=== PATIENT | male | born 1995 | race Hispanic/Latino ===

== ENCOUNTER 2019-11-23 09:09 | Emergency (ER) | payer SELFPAY ==
[2019-11-23 10:26] LABS: Urine Blood 1+ (NEG); Urine Glucose NEGATIVE (NEG); Urine Protein NEGATIVE (NEG); Urine Specific Gravity 1.025 (1.005-1.030)
[2019-11-23 10:30] LABS: Urine Bacteria <20 /HPF (NONE SEEN); Urine Culture Reflex Order REFLEXED
--- NOTE | 2019-11-23 11:07 | EDPHYS ---
Physician Documentation [facility] Name: Eldon Decker Age: 24 yrs Sex: Male : 1995 Arrival Date: 11/23/2019 Time: :14 Bed 11 Private MD: EZE Physician Nikolay Diaz HPI: 11/22 10:58 This 24 yrs old Male presents to ER via Ambulatory with complaints of Urinary kary Problem. 10:58 The patient presents with a possible STD exposure, symptoms include dysuria, purulent kary penile discharge. Onset: The symptoms/episode began/occurred 2 day(s) ago. Modifying factors: The symptoms are alleviated by nothing, the symptoms are aggravated by nothing. Associated signs and symptoms: Pertinent positives: dysuria. Severity of symptoms: At their worst the symptoms were mild, moderate, in the emergency department the symptoms are unchanged. The patient has not experienced similar symptoms in the past. Historical: - Allergies: 09:18 No Known Allergies; ss - Home Meds: :18 None [Active]; ss - PMHx: :18 None; ss - PSHx: 09:18 None; ss - Immunization history:: Adult Immunizations up to date. - Social history:: Smoking status: Patient denies any tobacco usage or history of. ROS: 11:00 Constitutional: Negative for fever, chills, and weight loss, Eyes: Negative for injury, kary pain, redness, and discharge, ENT: Negative for injury, pain, and discharge, Neck: Negative for injury, pain, and swelling, Cardiovascular: Negative for chest pain, palpitations, and edema, Respiratory: Negative for shortness of breath, cough, wheezing, and pleuritic chest pain, Abdomen/GI: Negative for abdominal pain, nausea, vomiting, diarrhea, and constipation, Back: Negative for injury and pain, MS/Extremity: Negative for injury and deformity, Skin: Negative for injury, rash, and discoloration, Neuro: Negative for headache, weakness, numbness, tingling, and seizure, Psych: Negative for depression, anxiety, suicide ideation, homicidal ideation, and hallucinations, Allergy/Immunology: Negative for hives, rash, and allergies, Endocrine: Negative for neck swelling, polydipsia, polyuria, polyphagia, and marked weight changes, Hematologic/Lymphatic: Negative for swollen nodes, abnormal bleeding, and unusual bruising. 11:00 : Positive for urinary symptoms, urinary frequency, small amounts, burning with urination, difficulty urinating, penile discharge, penile pain, of the meatus. Exam: 11:00 Constitutional: This is a well developed, well nourished patient who is awake, alert, kary and in no acute distress. Head/Face: Normocephalic, atraumatic. Eyes: Pupils equal round and reactive to light, extra-ocular motions intact. Lids and lashes normal. Conjunctiva and sclera are non-icteric and not injected. Cornea within normal limits. Periorbital areas with no swelling, redness, or edema. ENT: Nares patent. No nasal discharge, no septal abnormalities noted. Tympanic membranes are normal and external auditory canals are clear. Oropharynx with no redness, swelling, or masses, exudates, or evidence of obstruction, uvula midline. Mucous membranes moist. Neck: Trachea midline, no thyromegaly or masses palpated, and no cervical lymphadenopathy. Supple, full range of motion without nuchal rigidity, or vertebral point tenderness. No Meningismus. Chest/axilla: Normal chest wall appearance and motion. Nontender with no deformity. No lesions are appreciated. Cardiovascular: Regular rate and rhythm with a normal S1 and S2. No gallops, murmurs, or rubs. Normal PMI, no JVD. No pulse deficits. Respiratory: Lungs have equal breath sounds bilaterally, clear to auscultation and percussion. No rales, rhonchi or wheezes noted. No increased work of breathing, no retractions or nasal flaring. Abdomen/GI: Soft, non-tender, with normal bowel sounds. No distension or tympany. No guarding or rebound. No evidence of tenderness throughout. Back: No spinal tenderness. No costovertebral tenderness. Full range of motion. Skin: Warm, dry with normal turgor. Normal color with no rashes, no lesions, and no evidence of cellulitis. MS/ Extremity: Pulses equal, no cyanosis. Neurovascular intact. Full, normal range of motion. Neuro: Awake and alert, GCS 15, oriented to person, place, time, and situation. Cranial nerves II-XII grossly intact. Motor strength 5/5 in all extremities. Sensory grossly intact. Cerebellar exam normal. Normal gait. Psych: Awake, alert, with orientation to person, place and time. Behavior, mood, and affect are within normal limits. 11:00 : CVA tenderness, is absent, Male external genitalia: Circumcision noted. Bladder: is normal, Sexual behavior: the patient is sexually active, and reports multiple partners. Vital Signs: 09:16 BP 128 / 86; Pulse 95; Resp 16; Temp 98.6; Pulse Ox 97% on R/A; Weight 81.65 kg; Height ss 5 ft. 3 in. (160.02 cm); Pain 01/18; 09:16 Body Mass Index 31.89 (81.65 kg, 160.02 cm) MDM: 10:16 Patient medically screened. [facility] 11:02 Data reviewed: vital signs, nurses notes, lab test result(s), urinalysis. [facility] 11/22 09:47 Order name: Urine Microscopic Only; Complete Time: 10:56 11/22 09:49 Order name: Urine Dipstick--Ancillary (enter results); Complete Time: 10:56 11/22 09:47 Order name: Urine Dipstick-Ancillary (obtain specimen); Complete Time: 09:47 11/22 10:35 Order name: Urine Culture EDID 11/22 10:58 Order name: Bladder Scanner: note pvr; Complete Time: 11:16 [facility] Administered Medications: 11:16 Drug: Zithromax 1 grams Route: PO; 11:49 Follow up: Response: No adverse reaction 11:31 Drug: Rocephin (cefTRIAXone) 1 grams Route: IM; Site: right gluteus; 11:49 Follow up: Response: No adverse reaction Disposition: 11/23/19 11:06 Discharged to Home. Impression: Dysuria. - Condition is Stable. - Discharge Instructions: Dysuria, Sexually Transmitted Disease, [id number]. - Prescriptions for Doxycycline Hyclate 100 mg Oral Tablet - take 1 tablet by ORAL route every 12 hours; 20 tablet. - Medication Reconciliation Form, Thank You Letter, Antibiotic Education, Prescription Opioid Use form. - Follow up: Private Physician; When: 2 - 3 days; Reason: Recheck today's complaints, Continuance of care, Re-evaluation by your physician. Follow up: Kale Salomon MD; When: 5 - 6 days; Reason: Recheck today's complaints, Re-evaluation by your physician. - Problem is new. - Symptoms have improved. Signatures: Dispatcher [employer] EDMS Nikolay Diaz MD MD cha Smirch, Shelby, RN RN ss Corrections: (The following items were deleted from the chart) 11:50 11:06 11/23/2019 11:06 Discharged to Home. Impression: Dysuria. Condition is Stable. ss Forms are Medication Reconciliation Form, Thank You Letter, Antibiotic Education, Prescription Opioid Use. Follow up: Private Physician; When: 2 - 3 days; Reason: Recheck today's complaints, Continuance of care, Re-evaluation by your physician. Follow up: Kale Salomon; When: 5 - 6 days; Reason: Recheck today's complaints, Re-evaluation by your physician. Problem is new. Symptoms have improved. kary
--- NOTE | 2019-11-23 11:07 | ER ---
Nurse's Notes [facility] Name: Eldon Decker Age: 24 yrs Sex: Male : 1995 Arrival Date: 11/23/2019 Time: :14 Bed 11 Private MD: Diagnosis: Dysuria Presentation: 11/22 09:16 Chief complaint: Patient states: Burning with urination, urgency and frequency that ss began 3 days ago. Coronavirus screen: Proceed with normal triage. Patient denies a cough. Patient denies shortness of breath or difficulty breathing. Patient denies measured and/or subjective temperature greater than 100.4F prior to today's visit. Patient denies travel on a cruise ship or to a country the [facility] currently lists as an affected area. Patient denies contact with known and/or suspected case of COVID-19. Ebola Screen: Patient denies exposure to infectious person. Patient denies travel to an Ebola-affected area in the 21 days before illness onset. Initial Sepsis Screen: Does the patient meet any 2 criteria? No. Patient's initial sepsis screen is negative. Does the patient have a suspected source of infection? No. Patient's initial sepsis screen is negative. Risk Assessment: Do you want to hurt yourself or someone else? Patient reports no desire to harm self or others. Onset of symptoms was November 20, 2019. 09:16 Method Of Arrival: Ambulatory ss 09:16 Acuity: MARY ELLEN 4 ss Historical: - Allergies: 09:18 No Known Allergies; ss - Home Meds: 09:18 None [Active]; ss - PMHx: 09:18 None; ss - PSHx: 09:18 None; ss - Immunization history:: Adult Immunizations up to date. - Social history:: Smoking status: Patient denies any tobacco usage or history of. Screenin:16 Abuse screen: Denies threats or abuse. Denies injuries from another. Nutritional ss screening: No deficits noted. Tuberculosis screening: Never had TB. Fall Risk None identified. Assessment: 09:16 General: Appears in no apparent distress. comfortable, Behavior is calm, cooperative, ss Denies fever, feeling ill, fatigue, chills. Pain: Complains of pain in suprapubic area, urinary meatus Pain currently is 7 out of 10 on a pain scale. Quality of pain is described as burning, pressure, Pain began 2-3 days ago. Is continuous. Neuro: Level of Consciousness is awake, alert, obeys commands, Oriented to person, place, time, situation, Shoe Lining Fitter are equal bilaterally. Cardiovascular: Capillary refill < 3 seconds is brisk in bilateral fingers. Respiratory: Airway is patent Respiratory effort is even, unlabored, Respiratory pattern is regular, symmetrical. GI: Patient currently denies diarrhea, nausea, vomiting. : Reports burning with urination, since x 3 days urgency, urinary frequency. EENT: Oral mucosa is moist. Throat is clear. Derm: Skin is intact, is healthy with good turgor, Skin is dry, Skin is pink, warm \T\ dry. normal. Musculoskeletal: Circulation, motion, and sensation intact. Range of motion: intact in all extremities, Swelling absent. 10:57 Reassessment: Patient appears in no apparent distress at this time. Patient and/or ss family updated on plan of care and expected duration. Pain level reassessed. Patient is alert, oriented x 3, equal unlabored respirations, skin warm/dry/pink. 11:31 Reassessment: awaiting shot time. Vital Signs: 09:16 BP 128 / 86; Pulse 95; Resp 16; Temp 98.6; Pulse Ox 97% on R/A; Weight 81.65 kg; Height ss 5 ft. 3 in. (160.02 cm); Pain 7/10; 09:16 Body Mass Index 31.89 (81.65 kg, 160.02 cm) ED Course: 09:14 Patient arrived in ED. mr 09:16 Patient has correct armband on for positive identification. Bed in low position. Call ss light in reach. 09:18 Triage completed. ss 09:18 Arm band placed on left wrist. ss 10:16 Nikolay Diaz MD is Attending Physician. kary 10:23 Onieda Robledo, JIM is Primary Nurse. ss 11:03 Kale Salomon MD is Referral Physician. kary 11:31 No provider procedures requiring assistance completed. Patient did not have IV access ss during this emergency room visit. Administered Medications: 11:16 Drug: Zithromax 1 grams Route: PO; ss 11:49 Follow up: Response: No adverse reaction 11:31 Drug: Rocephin (cefTRIAXone) 1 grams Route: IM; Site: right gluteus; ss 11:49 Follow up: Response: No adverse reaction ss Outcome: 11:06 Discharge ordered by . kary 11:31 Discharge instructions given to patient, Instructed on discharge instructions, follow ss up and referral plans. medication usage, Demonstrated understanding of instructions, follow-up care, medications, Prescriptions given X 1. 11:48 Discharged to home ambulatory. 11:48 Condition: good 11:50 Patient left the ED. ss Signatures: Nikolay Diaz MD MD cha Rivera, Mary mr Smirch, Shelby, RN RN ss
[2019-11-23] MEDS ORDERED: AZITHROMYCIN 250 MG TAB ONE (11:11)
[2019-11-23] MEDS ORDERED: LIDOCAINE 1% MPF 2 ML AMPULE ONE (11:11)
[2019-11-23] MEDS ORDERED: CEFTRIAXONE 1000 MG/VIAL ONE (11:11)
[2019-11-23 12:35] VITALS: BP 128/86; TEMP 98.6; O2SAT 97
== END 2019-11-23 11:50 | disposition home or self-care (01) ==
LOC: ER 09:09
DX: R30.0 Dysuria (principal)
CPT/HCPCS: 81003; 81015; 87086; 87088; 96372; 99283; J2001

== ENCOUNTER 2019-12-02 09:30 | Emergency (ER) | payer SELFPAY ==
[2019-12-02] MEDS ORDERED: NA CHLORIDE 0.9% 1,000 ML ONE (10:24)
[2019-12-02 10:37] LABS: Absolute Lymphocytes (CBC) 1.4 K/uL (0.7-4.9); Basophils % 1.4 % (0-1.3); Hematocrit 44.4 % (39.6-49.0); Lymphocytes % 21.2 % (15.3-44.8); MPV 8.5 fL (7.6-11.3); RBC Red Blood Cell Count 5.09 M/uL (4.33-5.43)
[2019-12-02 10:55] LABS: ALT/SGPT 257 U/L (12-78); AST/SGOT 67 U/L (15-37); Albumin 4.2 g/dL (3.4-5.0); Alkaline Phosphatase 86 U/L (45-117); BUN Blood Urea Nitrogen 19 mg/dL (7-18); Bicarbonate 27 mmol/L (21-32); Bilirubin Direct 0.2 mg/dL (0-0.2); Glucose Level 110 mg/dL (74-106); Lipase 62 U/L (73-393); Potassium 3.6 mmol/L (3.5-5.1); Protein, Total 8.4 g/dL (6.4-8.2); Sodium Level 139 mmol/L (136-145)
[2019-12-02 11:10] LABS: Urine Bacteria <20 /HPF (NONE SEEN); Urine Culture Reflex Order NOT NEEDED; Urine RBC NONE SEEN /HPF (NONE SEEN)
[2019-12-02 11:11] LABS: Urine Mucus MOD /HPF (NONE SEEN)
--- NOTE | 2019-12-02 11:34 | RAD REPORT ---
EXAM DESCRIPTION: CTAbdomen Pelvis W Contrast - 12/02/2019 11:14 am CLINICAL HISTORY: Abdominal pain. flank pain COMPARISON: No comparisons TECHNIQUE: Biphasic CT imaging of the abdomen and pelvis was performed with 100 ml non-ionic IV cont rast. All CT scans are performed using dose optimization technique as appropriate and may include automated exposure control or mA/KV adjustment according to patient size. FINDINGS: The lung bases are clear. The liver demonstrates diffuse fatty infiltration. The spleen, pancreas, adrenal glands and kidneys a re within normal limits. No bowel obstruction, free air, free fluid or abscess. The appendix appears thickened up to 10 mm, h owever without significant periappendiceal fat stranding. Mild wall thickening of the right colon is seen. No evidence of significant lymphadenopathy. No suspicious bony findings. IMPRESSION: Thickened appendix up to 10 mm without significant surrounding inflammation seen. Advise clinical correlation for the possibility of early appendicitis. A mild right-sided colitis is likely present.
--- NOTE | 2019-12-02 12:48 | EDPHYS ---
Physician Documentation [facility] Name: Eldon Decker Age: 24 yrs Sex: Male : 1995 Arrival Date: 12/02/2019 Time: 09:32 Bed 19 Private MD: ED Physician Rodolfo Hernandez HPI: 12/01 10:24 This 24 yrs old Male presents to ER via Ambulatory with complaints of Right pm1 flank pain. 10:24 The patient complains of pain in the right low back. The pain radiates to the right pm1 groin. Onset: The symptoms/episode began/occurred yesterday. Modifying factors: The symptoms are alleviated by nothing. the symptoms are aggravated by nothing. Associated signs and symptoms: Pertinent negatives: dysuria, fever, urinary frequency, headache, nausea, vomiting. Severity of pain: in the emergency department the pain has improved. The patient has experienced a previous episode, similar to prior kidney stone. The patient has been recently seen at the [facility] Emergency Department, last week, patient was seen for urethritis and penile discharge. Historical: - Allergies: 09:44 No Known Allergies; hb - Home Meds: 09:44 None [Active]; hb - PMHx: 09:44 None; hb - PSHx: 09:44 None; hb - Immunization history:: Adult Immunizations up to date. - Social history:: Smoking status: Patient denies any tobacco usage or history of. ROS: 10:24 Constitutional: Negative for fever, chills, and weight loss, Cardiovascular: Negative pm1 for chest pain, palpitations, and edema, Respiratory: Negative for shortness of breath, cough, wheezing, and pleuritic chest pain, Abdomen/GI: Negative for abdominal pain, nausea, vomiting, diarrhea, and constipation. 10:24 : Negative for injury, bleeding, discharge, and swelling, MS/Extremity: Negative for injury and deformity, Skin: Negative for injury, rash, and discoloration, Neuro: Negative for headache, weakness, numbness, tingling, and seizure. 10:24 Back: Positive for flank pain, on the right. Exam: 10:24 Constitutional: This is a well developed, well nourished patient who is awake, alert, pm1 and in no acute distress. Head/Face: Normocephalic, atraumatic. Chest/axilla: Normal chest wall appearance and motion. Nontender with no deformity. No lesions are appreciated. 10:24 Abdomen/GI: Soft, non-tender, with normal bowel sounds. No distension or tympany. No guarding or rebound. No evidence of tenderness throughout. Back: No spinal tenderness. No costovertebral tenderness. Full range of motion. Skin: Warm, dry with normal turgor. Normal color with no rashes, no lesions, and no evidence of cellulitis. MS/ Extremity: Pulses equal, no cyanosis. Neurovascular intact. Full, normal range of motion. 10:24 Cardiovascular: Exam negative for acute changes, Rate: normal, Rhythm: regular, Pulses: no pulse deficits are appreciated. 10:24 Respiratory: Exam negative for acute changes, respiratory distress, shortness of breath. 10:24 Neuro: Exam negative for acute changes, Orientation: is normal, Motor: is normal. Vital Signs: 09:42 BP 144 / 69; Pulse 100; Resp 16; Temp 99.3; Pulse Ox 99% on R/A; Weight 81.65 kg; hb Height 5 ft. 3 in. (160.02 cm); Pain 7/10; 10:02 BP 138 / 92; Pulse 92; Resp 17; Pulse Ox 95% ; ah 11:00 BP 112 / 72; Pulse 73; Resp 18; Pulse Ox 97% ; ah 09:42 Body Mass Index 31.89 (81.65 kg, 160.02 cm) hb MDM: 10:11 Patient medically screened. pm1 10:24 Data reviewed: vital signs. Data interpreted: Pulse oximetry: on room air is 99 %. pm1 Interpretation: normal. 10:24 ED course: patient refused pain medications . pm1 11:51 ED course: Patient without any abdominal tenderness or flank pain on reexamination. pm1 Negative Rovsing's, psoas, and obturator. Informed patient of radiology findings and will consult with surgeon for disposition. 12:38 Physician consultation: Brian Bueno MD was called at 12:00, was contacted at 12:38, pm1 regarding consult, patient's condition, outpatient follow-up, in 2-3 days, May discharge the patient home with Augmentin prescription for follow up in his office. Educate the patient on return precautions. 12:43 Counseling: I had a detailed discussion with the patient and/or guardian regarding: the pm1 historical points, exam findings, and any diagnostic results supporting the discharge/admit diagnosis, lab results, radiology results, to return to the emergency department if symptoms worsen or persist or if there are any questions or concerns that arise at home. 12:43 Special discussion: Based on the patient's Hx, exam, and Dx evaluation, there is no pm1 indication for emergent surgery or inpatient Tx. It is understood by the patient/guardian that if the Sx's persist or worsen they need to return immediately for re-evaluation. 12/01 10:31 Order name: Urine Dipstick--Ancillary (enter results) em1 12/01 10:12 Order name: CT Abd/Pelvis - IV Contrast Only pm1 12/01 10:32 Order name: Basic Metabolic Panel; Complete Time: 11:01 EDNY 12/01 10:32 Order name: Liver (Hepatic) Function; Complete Time: 11:01 EDNY 12/01 10:33 Order name: Lipase; Complete Time: 11:01 EDNY 12/01 10:33 Order name: CBC with Automated Diff; Complete Time: 10:40 EDNY 12/01 10:33 Order name: Urine Microscopic Only; Complete Time: 11:12 EDNY 12/01 11:01 Order name: Abdomen ; Complete Time: 11:37 EDNY 12/01 10:12 Order name: IV Saline Lock; Complete Time: 10:26 pm1 12/01 10:12 Order name: Labs collected and sent; Complete Time: 10:26 pm1 12/01 10:12 Order name: Urine Dipstick-Ancillary (obtain specimen); Complete Time: 10:14 pm1 Administered Medications: 10:20 Drug: NS 0.9% 1000 ml Route: IV; Rate: 1000 ml; Site: right antecubital; 11:20 Follow up: Response: No adverse reaction; IV Status: Completed infusion; IV Intake: ah 1000ml 12:55 Drug: Augmentin 875 mg Route: PO; Disposition: 19:44 Co-signature as Attending Physician, Rodolfo Hernandez MD. [email or web address] Disposition: 12/02/19 12:47 Discharged to Home. Impression: Low back pain - flank pain. - Condition is Stable. - Discharge Instructions: Back Pain, Adult. - Prescriptions for Augmentin 875- 125 mg Oral Tablet - take 1 tablet by ORAL route every 12 hours for 10 days; 20 tablet. - Medication Reconciliation Form, Thank You Letter, Antibiotic Education, Prescription Opioid Use form. - Follow up: Emergency Department; When: As needed; Reason: Worsening of condition. Follow up: Brian Bueno MD; When: 2 - 3 days; Reason: Recheck today's complaints, Continuance of care, Re-evaluation by your physician. - Problem is new. - Symptoms have improved. Signatures: Dispatcher [employer] EDNY Raphael Shields, LILY CONTROL CLERK HEAD pm1 Shira Urias, RN RN Merissa Gan RN RN Rodolfo Hernandez MD MD [email or web address] Corrections: (The following items were deleted from the chart) 10:59 10:[address] [facility] EDNY 12:47 12:47 12/02/2019 12:47 Discharged to Home. Impression: Low back pain - flank pain. pm1 Condition is Stable. Forms are Medication Reconciliation Form, Thank You Letter, Antibiotic Education, Prescription Opioid Use. Follow up: Emergency Department; When: As needed; Reason: Worsening of condition. Follow up: Private Physician; When: 2 - 3 days; Reason: Recheck today's complaints, Continuance of care, Re-evaluation by your physician. Problem is new. Symptoms have improved. pm1 13:04 12:47 12/02/2019 12:47 Discharged to Home. Impression: Low back pain - flank pain. hb Condition is Stable. Discharge Instructions: Back Pain, Adult. Prescriptions for Augmentin 875-125 mg Oral Tablet - take 1 tablet by ORAL route every 12 hours for 10 days; 20 tablet. and Forms are Medication Reconciliation Form, Thank You Letter, Antibiotic Education, Prescription Opioid Use. Follow up: Emergency Department; When: As needed; Reason: Worsening of condition. Follow up: Brian Bueno; When: 2 - 3 days; Reason: Recheck today's complaints, Continuance of care, Re-evaluation by your physician. Problem is new. Symptoms have improved. pm1
--- NOTE | 2019-12-02 12:48 | ER ---
Nurse's Notes [facility] Name: Eldon Decker Age: 24 yrs Sex: Male : 1995 Arrival Date: 12/02/2019 Time: 09:32 Bed 19 Private MD: Diagnosis: Low back pain-flank pain Presentation: 12/01 09:42 Chief complaint: Patient states: Right flank pain and lethargy x 2 days. Seen in ED 1 hb week ago for UTI. Coronavirus screen: Proceed with normal triage. Ebola Screen: No symptoms or risks identified at this time. 09:42 Method Of Arrival: Ambulatory hb 09:43 Initial Sepsis Screen: Does the patient meet any 2 criteria? HR > 90 bpm. Does the hb patient have a suspected source of infection? No. Patient's initial sepsis screen is negative. Risk Assessment: Do you want to hurt yourself or someone else? Patient reports no desire to harm self or others. Onset of symptoms was December 01, 2019. 09:43 Acuity: MARY ELLEN 3 hb Historical: - Allergies: 09:44 No Known Allergies; hb - Home Meds: 09:44 None [Active]; hb - PMHx: 09:44 None; hb - PSHx: 09:44 None; hb - Immunization history:: Adult Immunizations up to date. - Social history:: Smoking status: Patient denies any tobacco usage or history of. Screenin:14 Abuse screen: Denies threats or abuse. Nutritional screening: No deficits noted. Tuberculosis screening: No symptoms or risk factors identified. Fall Risk None identified. Assessment: 10:07 General: Appears in no apparent distress. Behavior is calm, cooperative. General: Reports fatigue for 2-3 days. Pain: Complains of pain in right lower quadrant. Neuro: Level of Consciousness is awake, alert, Oriented to person, place, time. Cardiovascular: Heart tones S1 S2 present Capillary refill < 3 seconds. Respiratory: Airway is patent Respiratory effort is even, unlabored, Respiratory pattern is regular, symmetrical, Breath sounds are clear bilaterally. GI: Abdomen is non-distended, Bowel sounds present X 4 quads. Abdomen is tender to palpation in right lower quadrant Reports nausea, Patient currently denies vomiting. : Denies burning with urination. EENT: No signs and/or symptoms were reported regarding the EENT system. Derm: No signs and/or symptoms reported regarding the dermatologic system. Musculoskeletal: No signs and/or symptoms reported regarding the musculoskeletal system. 11:17 Reassessment: Pt to CT scan via at this time. ah 12:13 Reassessment: Patient and/or family updated on plan of care and expected duration. Pain ah level reassessed. Patient is alert, oriented x 3, equal unlabored respirations, skin warm/dry/pink. Pt awaiting results from lab and radiology. No needs voiced at this time. Vital Signs: 09:42 BP 144 / 69; Pulse 100; Resp 16; Temp 99.3; Pulse Ox 99% on R/A; Weight 81.65 kg; hb Height 5 ft. 3 in. (160.02 cm); Pain 7/10; 10:02 BP 138 / 92; Pulse 92; Resp 17; Pulse Ox 95% ; ah 11:00 BP 112 / 72; Pulse 73; Resp 18; Pulse Ox 97% ; ah 09:42 Body Mass Index 31.89 (81.65 kg, 160.02 cm) hb ED Course: 09:32 Patient arrived in ED. ag5 09:43 Triage completed. hb 09:44 Arm band placed on. hb 09:58 Raphael Shields, LILY is PHCP. pm1 09:58 Rodolfo Hernandez MD is Attending Physician. pm1 09:59 Merissa Gan, RN is Primary Nurse. ah 10:15 Inserted saline lock: 20 gauge in right antecubital area, using aseptic technique. ah 11:15 CT completed. Patient tolerated procedure well. Patient moved back from CT. bq 11:16 Abdomen In Process Unspecified. EDMS 12:14 Patient has correct armband on for positive identification. Bed in low position. Call light in reach. Side rails up X 1. 12:47 Brian Bueno MD is Referral Physician. pm1 13:00 No provider procedures requiring assistance completed. Patient did not have IV access during this emergency room visit. Administered Medications: 10:20 Drug: NS 0.9% 1000 ml Route: IV; Rate: 1000 ml; Site: right antecubital; 11:20 Follow up: Response: No adverse reaction; IV Status: Completed infusion; IV Intake: ah 1000ml 12:55 Drug: Augmentin 875 mg Route: PO; Intake: 11:20 IV: 1000ml; Total: 1000ml. Outcome: 12:47 Discharge ordered by . pm1 13:00 Discharged to home ambulatory. 13:00 Condition: good 13:00 Discharge instructions given to patient, Instructed on discharge instructions, follow up and referral plans. medication usage, Demonstrated understanding of instructions, follow-up care, medications, Prescriptions given X 1. 13:04 Patient left the ED. Signatures: Dispatcher [employer] EDKendal Kang Patrick, NP SKIN DIVING TEACHER pm1 Shira Urias, RN RN Vlad Flannery ag5 Merissa Gan, RN RN
[2019-12-02] MEDS ORDERED: AMOX/K CLAV 875 MG TAB ONE (13:02)
[2019-12-02 13:10] VITALS: TEMP 99.3
[2019-12-02 13:13] VITALS: BP 112/72; O2SAT 97
[2019-12-02 18:17] LABS: Urine Blood NEGATIVE (NEG); Urine Glucose NEGATIVE (NEG); Urine Protein 1+ (NEG); Urine Specific Gravity >1.030 (1.005-1.030)
== END 2019-12-02 13:04 | disposition home or self-care (01) ==
LOC: ER 09:30
DX: R10.9 Unspecified abdominal pain (principal)
CPT/HCPCS: 36415; 74177; 80048; 80076; 81003; 81015; 83690; 85025; 96360; 99284; J7030; Q9967

== ENCOUNTER 2019-12-02 19:52 | Inpatient (IN) | payer SELFPAY ==
--- NOTE | 2019-12-02 21:13 | ER ---
Nurse's Notes [facility] Name: Eldon Decker Age: 24 yrs Sex: Male : 1995 Arrival Date: 12/02/2019 Time: 19:54 Bed 20 Private MD: Diagnosis: Abdominal tenderness Presentation: 12/01 20:00 Chief complaint: Patient states: RLQ abdominal pain continues since yesterday. Seen ll1 this am here, borderline appendix in CT. + nausea, no fever. Coronavirus screen: Proceed with normal triage. Patient denies a cough. Patient denies shortness of breath or difficulty breathing. Patient denies measured and/or subjective temperature greater than 100.4F prior to today's visit. Patient denies travel on a cruise ship or to a country the [facility] currently lists as an affected area. Patient denies contact with known and/or suspected case of COVID-19. Ebola Screen: Patient denies travel to an Ebola-affected area in the 21 days before illness onset. Initial Sepsis Screen: Does the patient meet any 2 criteria? HR > 90 bpm. No. Patient's initial sepsis screen is negative. Does the patient have a suspected source of infection? No. Patient's initial sepsis screen is negative. Risk Assessment: Do you want to hurt yourself or someone else? Patient reports no desire to harm self or others. Onset of symptoms was December 01, 2019. 20:00 Method Of Arrival: Ambulatory ll1 20:00 Acuity: MARY ELLEN 3 ll1 20:07 Note Charge nurse notified possible appy, borderline 10 mm appendix found on CT this am.ll1 Historical: - Allergies: 20:03 No Known Allergies; ll1 - PSHx: 20:03 None; ll1 - Immunization history:: Flu vaccine is not up to date. - Social history:: Smoking status: Patient denies any tobacco usage or history of. Patient uses street drugs, marijuana, Patient/guardian denies using alcohol, tobacco products. - Family history:: not pertinent. Screenin:51 Abuse screen: Denies threats or abuse. Nutritional screening: No deficits noted. ah Tuberculosis screening: No symptoms or risk factors identified. Fall Risk None identified. Assessment: 21:49 General: Appears uncomfortable, Behavior is calm, cooperative. Pain: Complains of pain ah in right lower quadrant Pain does not radiate. Pain currently is 7 out of 10 on a pain scale. Neuro: Level of Consciousness is awake, alert, Oriented to person, place, time, situation. Cardiovascular: Heart tones S1 S2 present. Respiratory: Airway is patent Respiratory effort is Respiratory pattern is regular, symmetrical. GI: Bowel sounds present X 4 quads. Abdomen is tender to palpation in right lower quadrant Reports nausea, Patient currently denies vomiting. : No signs and/or symptoms were reported regarding the genitourinary system. EENT: No signs and/or symptoms were reported regarding the EENT system. Derm: No signs and/or symptoms reported regarding the dermatologic system. Musculoskeletal: No signs and/or symptoms reported regarding the musculoskeletal system. 22:45 Reassessment: Patient appears in no apparent distress at this time. No changes from ll1 previously documented assessment. Patient and/or family updated on plan of care and expected duration. Pain level reassessed. Patient is alert, oriented x 3, equal unlabored respirations, skin warm/dry/pink. Vital Signs: 20:00 BP 131 / 64; Pulse 86; Resp 18; Temp 99.5; Pulse Ox 95% ; Weight 81.65 kg; Height 5 ft. ll1 3 in. (160.02 cm); Pain 9/10; 22:52 BP 134 / 96; Pulse 78; Resp 18; Temp 98.6; Pulse Ox 98% ; Pain 5/10; ll1 20:00 Body Mass Index 31.89 (81.65 kg, 160.02 cm) ll1 ED Course: 19:54 Patient arrived in ED. cl3 20:03 Triage completed. ll1 20:04 Arm band placed on. ll1 20:07 Patient notified of wait time. ll1 20:55 Nikolay Diaz MD is Attending Physician. kary 21:08 Merissa Gan, RN is Primary Nurse. 21:10 Brian Bueno MD is Hospitalizing Provider. [facility] 21:40 Initial lab(s) drawn, by wa, sent to lab. Urine collected: clean catch specimen, clear, jp3 keke colored. Inserted saline lock: 18 gauge in right antecubital area, using aseptic technique. Blood collected. 21:40 Patient maintains SpO2 saturation greater than 95% on room air. jp3 21:52 Patient has correct armband on for positive identification. Bed in low position. Call light in reach. Side rails up X 1. 22:36 No provider procedures requiring assistance completed. Patient admitted, IV remains in place. Administered Medications: 21:49 Drug: NS 0.9% 1000 ml Route: IV; Rate: 125 ml/hr; Site: right antecubital; 23:03 Follow up: Response: No adverse reaction; IV Status: Infusion continued; IV Intake: ll1 300ml 22:22 Drug: Zosyn 3.375 grams Route: IVPB; Infused Over: 60 mins; Site: right antecubital; ll1 23:03 Follow up: Response: No adverse reaction; IV Status: Infusion continued ll1 Intake: 23:03 IV: 300ml; Total: 300ml. ll1 Outcome: 21:12 Decision to Hospitalize by Provider. kary 22:34 Admitted to Med/surg accompanied by [facility], via wheelchair, room 206, with chart, Report called to JIM Guadalupe 22:34 Condition: stable 22:34 Instructed on the need for admit, Demonstrated understanding of 23:04 Patient left the ED. ll1 Signatures: Nikolay Diaz MD MD cha Pisarski, Jacob jp3 Laura Mcfadden cl3 Merissa Gan, RN RN Richy Mcfadden RN RN ll1 Corrections: (The following items were deleted from the chart) 20:07 20:04 Arm band placed on Patient placed in an exam room, on a stretcher, ll1 ll1
--- NOTE | 2019-12-02 21:13 | EDPHYS ---
Physician Documentation [facility] Name: Eldon Decker Age: 24 yrs Sex: Male : 1995 Arrival Date: 12/02/2019 Time: 19:54 Bed 20 Private MD: ED Physician Nikolay Diaz HPI: 12/01 21:01 This 24 yrs old Male presents to ER via Ambulatory with complaints of Appendix kary Pain. 21:01 The patient presents with abdominal pain in the lower abdomen, in the right upper kary quadrant, right lower quadrant. Onset: The symptoms/episode began/occurred 1 day(s) ago. The patient complains of pain in the right mid back and right low back. The pain does not radiate. Onset: The symptoms/episode began/occurred 1 day(s) ago. Modifying factors: The symptoms are alleviated by nothing. the symptoms are aggravated by nothing. Associated signs and symptoms: The patient has no apparent associated signs or symptoms. Modifying factors: The symptoms are alleviated by nothing, the symptoms are aggravated by nothing. Historical: - Allergies: 20:03 No Known Allergies; ll1 - PSHx: 20:03 None; ll1 - Immunization history:: Flu vaccine is not up to date. - Social history:: Smoking status: Patient denies any tobacco usage or history of. Patient uses street drugs, marijuana, Patient/guardian denies using alcohol, tobacco products. - Family history:: not pertinent. ROS: 21:01 Constitutional: Negative for fever, chills, and weight loss, Eyes: Negative for injury, kary pain, redness, and discharge, ENT: Negative for injury, pain, and discharge, Neck: Negative for injury, pain, and swelling, Cardiovascular: Negative for chest pain, palpitations, and edema, Respiratory: Negative for shortness of breath, cough, wheezing, and pleuritic chest pain, Back: Negative for injury and pain, : Negative for injury, bleeding, discharge, and swelling, MS/Extremity: Negative for injury and deformity, Skin: Negative for injury, rash, and discoloration, Neuro: Negative for headache, weakness, numbness, tingling, and seizure, Psych: Negative for depression, anxiety, suicide ideation, homicidal ideation, and hallucinations, Allergy/Immunology: Negative for hives, rash, and allergies, Endocrine: Negative for neck swelling, polydipsia, polyuria, polyphagia, and marked weight changes, Hematologic/Lymphatic: Negative for swollen nodes, abnormal bleeding, and unusual bruising. 21:01 Abdomen/GI: Positive for abdominal pain, of the right lower quadrant. Exam: 21:01 Constitutional: This is a well developed, well nourished patient who is awake, alert, kary and in no acute distress. Head/Face: Normocephalic, atraumatic. Eyes: Pupils equal round and reactive to light, extra-ocular motions intact. Lids and lashes normal. Conjunctiva and sclera are non-icteric and not injected. Cornea within normal limits. Periorbital areas with no swelling, redness, or edema. ENT: Nares patent. No nasal discharge, no septal abnormalities noted. Tympanic membranes are normal and external auditory canals are clear. Oropharynx with no redness, swelling, or masses, exudates, or evidence of obstruction, uvula midline. Mucous membranes moist. Neck: Trachea midline, no thyromegaly or masses palpated, and no cervical lymphadenopathy. Supple, full range of motion without nuchal rigidity, or vertebral point tenderness. No Meningismus. Chest/axilla: Normal chest wall appearance and motion. Nontender with no deformity. No lesions are appreciated. Cardiovascular: Regular rate and rhythm with a normal S1 and S2. No gallops, murmurs, or rubs. Normal PMI, no JVD. No pulse deficits. Respiratory: Lungs have equal breath sounds bilaterally, clear to auscultation and percussion. No rales, rhonchi or wheezes noted. No increased work of breathing, no retractions or nasal flaring. Back: No spinal tenderness. No costovertebral tenderness. Full range of motion. Male : Normal genitalia with no discharge or lesions. Skin: Warm, dry with normal turgor. Normal color with no rashes, no lesions, and no evidence of cellulitis. MS/ Extremity: Pulses equal, no cyanosis. Neurovascular intact. Full, normal range of motion. Neuro: Awake and alert, GCS 15, oriented to person, place, time, and situation. Cranial nerves II-XII grossly intact. Motor strength 5/5 in all extremities. Sensory grossly intact. Cerebellar exam normal. Normal gait. Psych: Awake, alert, with orientation to person, place and time. Behavior, mood, and affect are within normal limits. 21:01 Abdomen/GI: Inspection: distension, Bowel sounds: normal, Palpation: mild abdominal tenderness, in the right lower quadrant, Liver: no appreciated palpable abnormalities, Hernia: not appreciated. Vital Signs: 20:00 BP 131 / 64; Pulse 86; Resp 18; Temp 99.5; Pulse Ox 95% ; Weight 81.65 kg; Height 5 ft. ll1 3 in. (160.02 cm); Pain 9/10; 22:52 BP 134 / 96; Pulse 78; Resp 18; Temp 98.6; Pulse Ox 98% ; Pain 5/10; ll1 20:00 Body Mass Index 31.89 (81.65 kg, 160.02 cm) ll1 MDM: 20:55 Patient medically screened. [facility] 21:05 Data reviewed: vital signs, nurses notes, lab test result(s), radiologic studies, plain kary films. 21:07 Differential diagnosis: appendicitis, cholecystitis, Cholelithiasis, diverticulitis, kary gastritis, non-specific abd pain, pancreatitis, Peptic Ulcer Disease. Data interpreted: doubler helper: not applicable for this patient encounter. rate is 86 beats/min, rhythm is normal sinus rhythm, Pulse oximetry: on room air is 95 %. Test interpretation: by ED physician or midlevel provider: plain radiologic studies. Counseling: I had a detailed discussion with the patient and/or guardian regarding: the historical points, exam findings, and any diagnostic results supporting the discharge/admit diagnosis, lab results, radiology results, the need for further work-up and treatment in the hospital. 21:57 Awaiting: labs results. ED course: dw with rissa rose , ivf, zosyn 3.375 gm iv q 6. kary adimt to rose. 12/01 21:00 Order name: Basic Metabolic Panel; Complete Time: 22:33 [facility] 12/01 21:00 Order name: CBC with Diff; Complete Time: :33 [facility] 12/01 21:00 Order name: Hepatic Function; Complete Time: 22:33 [facility] 12/01 21:00 Order name: Lipase; Complete Time: 22:33 [facility] 12/01 21:05 Order name: Lactate; Complete Time: 22:33 [facility] 12/01 21:05 Order name: Amylase, Serum; Complete Time: 22:33 [facility] 12/01 21:00 Order name: IV Saline Lock; Complete Time: 21:46 [facility] 12/01 21:00 Order name: Labs collected and sent; Complete Time: 21:46 [facility] 12/01 21:00 Order name: Urine Dipstick-Ancillary (obtain specimen); Complete Time: 21:46 [facility] 12/01 21:06 Order name: Chest Single View XRAY [facility] 12/01 21:52 Order name: Urine Dipstick--Ancillary (enter results) al 12/01 21:55 Order name: Urine Dipstick-Ancillary; Complete Time: 21:56 EDMS Administered Medications: 21:49 Drug: NS 0.9% 1000 ml Route: IV; Rate: 125 ml/hr; Site: right antecubital; 23:03 Follow up: Response: No adverse reaction; IV Status: Infusion continued; IV Intake: ll1 300ml 22:22 Drug: Zosyn 3.375 grams Route: IVPB; Infused Over: 60 mins; Site: right antecubital; 1 23:03 Follow up: Response: No adverse reaction; IV Status: Infusion continued ll1 Disposition: 12/02/19 21:12 Hospitalization ordered by Brian Rose for Observation. Preliminary diagnosis is Abdominal tenderness. - Bed requested for Telemetry/MedSurg (observation). - Status is Observation. ll1 - Condition is Fair. - Problem is new. - Symptoms have improved. Signatures: Dispatcher [employer] EDMS Jenna Carrasco RN RN mw Anderson, Corey, MD MD cha Harris, Amy RN Richy Victor RN RN ll1 Corrections: (The following items were deleted from the chart) 21:18 21:12 Hospitalization Ordered by Brian Rose MD for Observation. Preliminary diagnosis mw is Abdominal tenderness. Bed requested for Telemetry/MedSurg (observation). Status is Observation. Condition is Fair. Problem is new. Symptoms have improved. [facility] 23:04 21:18 12/02/2019 21:12 Hospitalization Ordered by Brian Rose MD for Observation. ll1 Preliminary diagnosis is Abdominal tenderness. Bed requested for Telemetry/MedSurg (observation). Status is Observation. Condition is Fair. Problem is new. Symptoms have improved. mw
[2019-12-02] MEDS ORDERED: NA CHLORIDE 0.9% 1,000 ML ONE (21:40)
[2019-12-02 21:54] LABS: Urine Blood TRACE (NEG); Urine Glucose NEGATIVE (NEG); Urine Protein NEGATIVE (NEG); Urine Specific Gravity >1.030 (1.005-1.030)
[2019-12-02 22:12] LABS: Absolute Lymphocytes (CBC) 2.1 K/uL (0.7-4.9); Basophils % 1.1 % (0-1.3); Hematocrit 43.6 % (39.6-49.0); Lymphocytes % 27.2 % (15.3-44.8); MPV 8.5 fL (7.6-11.3); RBC Red Blood Cell Count 4.92 M/uL (4.33-5.43)
[2019-12-02 22:14] LABS: ALT/SGPT 234 U/L (12-78); AST/SGOT 58 U/L (15-37); Albumin 3.9 g/dL (3.4-5.0); Alkaline Phosphatase 82 U/L (45-117); BUN Blood Urea Nitrogen 13 mg/dL (7-18); Bicarbonate 26 mmol/L (21-32); Bilirubin Direct 0.2 mg/dL (0-0.2); Bilirubin Total 0.6 mg/dL (0.2-1.0); Glucose Level 90 mg/dL (74-106); Lipase 85 U/L (73-393); Potassium 3.7 mmol/L (3.5-5.1); Sodium Level 138 mmol/L (136-145)
[2019-12-02] MEDS ORDERED: PIPER/TAZO/NS 3.375gm 3.375 GM/100 ML BAG ONE (22:21)
[2019-12-02] MEDS ORDERED: ACETAMINOPHEN 325 MG TABLET PO PRN (23:44)
[2019-12-02 23:57] VITALS: BMI 31.8
[2019-12-02] MEDS: D5 0.45 NS 1,000 ML IV SCH (23:58)
[2019-12-03 05:45] LABS: Absolute Lymphocytes (CBC) 1.8 K/uL (0.7-4.9); Basophils % 1.8 % (0-1.3); Lymphocytes % 27.8 % (15.3-44.8); MPV 8.3 fL (7.6-11.3); RBC Red Blood Cell Count 4.71 M/uL (4.33-5.43)
[2019-12-03 06:03] LABS: Albumin 3.5 g/dL (3.4-5.0); Bilirubin Direct 0.2 mg/dL (0-0.2); Bilirubin Total 1.1 mg/dL (0.2-1.0); Potassium 3.5 mmol/L (3.5-5.1)
[2019-12-03] MEDS: ONDANSETRON 4 MG/2 ML VIAL IV PRN ×2 (07:48→16:31)
[2019-12-03] MEDS: PIPER/TAZO/NS 3.375gm 3.375 GM/100 ML BAG IVPB SCH ×3 (08:49→17:59)
[2019-12-03] MEDS: MORPHINE 4 MG/ML SYR IV PRN ×3 (08:49→20:09)
[2019-12-03] MEDS: D5 0.45 NS 1,000 ML IV SCH ×3 (08:50→23:44)
--- NOTE | 2019-12-03 11:27 | RAD REPORT ---
EXAM DESCRIPTION: RAD - Chest Single View - 12/02/2019 10:01 pm CLINICAL HISTORY: ABDOMINAL DISTENTION COMPARISON: None TECHNIQUE: AP portable chest image was obtained 12/02/2019 10:01 pm . FINDINGS: Lungs are clear. Heart and vasculature are normal. No measurable pleural effusion and no p neumothorax. No acute bony abnormality seen. No acute aortic findings suspected. IMPRESSION: No acute cardiopulmonary process.
[2019-12-03] MEDS: INSULIN -REGULAR HUMAN 50 UNIT/0.5 ML ML SQ SCH ×3 (11:30→20:10)
--- NOTE | 2019-12-03 22:03 | HP ---
Date of Admission: 12/02/2019 Brief History Of Present Illness: Patient is a 24-year-old male who presents to the [facility] 2 weeks ago with urinary tract symptoms of burning with urination, possibly STD versus urinary tract infection, was given antibiotics at that time. Had significant improvement of the symptoms, suad fierro developed right-sided abdominal pain. He came back and had a CT scan performed, which showed an enlarged appendix, possible right-sided colitis, but he had no surrounding inflammatory changes consi stent with acute appendicitis at that time. He was given antibiotics and sent home. He spoke to his family and was concerned as the pain did not get any better and as such, he bounced back to the [facility] room yesterday with the above-stated complaints. He states the pain is predominantly in the ri t lower quadrant at this point. He has some nausea. No vomiting. He had some diarrhea earlier in the week, but now has normal bowel function. Otherwise, the pain is focal in the right lower quadra nt consistent with the pain he has had before in the past. It does not seem to be getting better. I t is constant at this point. He has had no sick contacts. No recent travel or any food exposures. Past Medical History: Urinary tract infection, possible STDs. Past Surgical History: Negative. Social History: He smokes cigarettes. He smokes marijuana daily. He uses Xanax intermittently and occasionally. Denies alcohol usage. He denies COVID exposures. He works in construction. Review of Systems: Ten-point review of systems other than HPI, denies. Physical Examination: Vital Signs: At the time of my examination, his BMI is 32. His temperature was 98.4, blood pressure 100/52, pulse 83, respiratory rate 16. General: He is awake, alert, and oriented. Psychiatric: Appropriate. Conversive. HEENT: He is normocephalic. Sclerae icteric. Mucous membranes are moist. Oropharynx clear. Neck: Supple. No JVD. Chest: Normal expansion and excursion. Cardiovascular: Regular rate and rhythm. Pulmonary: Clear to auscultation bilaterally. Abdomen: Soft with mild global tenderness to palpation, worse in the right lower quadrant near [place]ul point. Extremities: No clubbing, cyanosis, edema. Skin: Warm and dry. Laboratory Data: Reveals a white blood cell count of 6.4, hemoglobin is 13.9, hematocrit of 42.0, pl atelet count is 301. His neutrophils are 50%. His sodium 141, potassium 3.5, chloride 105, carbon d ioxide 29, BUN 11, creatinine is 1.07. His glucose was 121, calcium 8.0, total bilirubin 1.1, direct component was 0.2, AST is 52, ALT 201, alkaline phosphatase is 67. His lipase is 64. He had trace blood in his urine, otherwise it was normal. He had a CT scan performed of the abdomen and pelvis on 12/01, which was officially read as mild right-sided colitis likely present, thickened appendix up t o 10 mm without significant surrounding inflammation seen. Advise correlation for possible appendici tis. Assessment And Plan: This is a 24-year-old male who comes in with right lower quadrant abdominal марина n concerning for possible acute appendicitis. 1.IV fluid hydration. 2.Antibiotic coverage with Zosyn 3.375 IV q.6. 3.Pain management. 4.Incentive spirometry. 5.I explained the risks, benefits, and alternatives of laparoscopic possible open appendectomy inclu ding but not limited to bleeding, infection, damage to surrounding tissues, need for further operatio n and procedures. Patient states he would like to give the antibiotics 1 more day as he is uninsured and does not want to proceed with surgery unless it is necessary. However, he states that he feels that if he does not feel better by tomorrow, he will agree to surgery. At this time, I have explaine d that I recommend surgery at this point right now today to do a diagnostic laparoscopy and appendect casper because his symptoms are fairly consistent with diagnosis of acute appendicitis and that waiting any longer can cause perforation and complications; however, patient still requests to wait 1 more da y as such I will put him on the surgery board schedule for tomorrow morning. I have explained the risks, benefits, and alternatives of the above stated plan. Patient agrees to proceed as indicat ed. KALYN/TOMAS Voice ID: [id number]
[2019-12-04] MEDS: ONDANSETRON 4 MG/2 ML VIAL IV PRN ×2 (01:37→11:15)
[2019-12-04] MEDS: MORPHINE 4 MG/ML SYR IV PRN ×3 (01:37→11:05)
[2019-12-04] MEDS: PIPER/TAZO/NS 3.375gm 3.375 GM/100 ML BAG IVPB SCH ×2 (06:00)
[2019-12-04] MEDS ORDERED: MORPHINE 2 MG/ML SYR ONE (06:05)
[2019-12-04] MEDS: D5 0.45 NS 1,000 ML IV SCH (06:06)
[2019-12-04 06:08] LABS: Absolute Lymphocytes (CBC) 2.1 K/uL (0.7-4.9); Basophils % 1.4 % (0-1.3); Hematocrit 44.4 % (39.6-49.0); Lymphocytes % 33.1 % (15.3-44.8); MPV 8.3 fL (7.6-11.3); RBC Red Blood Cell Count 4.95 M/uL (4.33-5.43)
[2019-12-04 06:16] LABS: Magnesium 2.5 mg/dL (1.8-2.4); Phosphorus 4.4 mg/dL (2.5-4.9); Potassium 3.5 mmol/L (3.5-5.1)
[2019-12-04] MEDS ORDERED: BUPIVACA 0.25%/EPI 0.0005% MDV 50 ML VIAL ONE (07:00)
[2019-12-04] MEDS ORDERED: dexAMETHasone 10 MG/ML VIAL ONE (07:03)
[2019-12-04] MEDS ORDERED: propofoL 200 MG/20 ML VIAL IV ONE (07:03)
[2019-12-04] MEDS ORDERED: MIDAZOLAM HCL 2 MG/2 ML INJ ONE (07:03)
[2019-12-04] MEDS ORDERED: LIDOCAINE 2% MPF 5 ML VIAL ONE (07:03)
[2019-12-04] MEDS ORDERED: FENTANYL CITR 100 MCG/2 ML ONE ×2 (07:03→08:16)
[2019-12-04] MEDS ORDERED: ROCURONIUM 50 MG/5 ML VIAL IV ONE (07:04)
[2019-12-04] MEDS: Ringers Lactate 1,000 ML IV ONE ×2 (07:17→07:18)
[2019-12-04] MEDS: INSULIN -REGULAR HUMAN 50 UNIT/0.5 ML ML SQ SCH ×2 (07:30→11:30)
[2019-12-04] MEDS ORDERED: SUCCINYLCHOLINE 20 MG/ML (10 ML) IV ONE (07:43)
--- NOTE | 2019-12-04 08:21 | P.OP ---
Preoperative diagnosis: Acute Appendicitis Postoperative diagnosis: Acute Appendicitis Primary procedure: Laparoscopic Appendectomy Anesthesia: GETA + Local Estimated blood loss: <2cc Specimen: Vermiform Appendix Findings: Dilated Appendix, minimal RLQ inflammation Complications: None Transferred to: Recovery Room Condition: Good
[2019-12-04] MEDS ORDERED: Ringers Lactate 1,000 ML IV ONE (08:24)
[2019-12-04] MEDS ORDERED: GLYCOPYRROLATE 0.2 MG/ML SYR ONE (08:26)
[2019-12-04] MEDS ORDERED: KETOROLAC 30 MG/ML INJ ONE (08:26)
[2019-12-04] MEDS ORDERED: ONDANSETRON 4 MG/2 ML VIAL ONE ×2 (08:27→09:29)
[2019-12-04] MEDS ORDERED: NEOSTIGMINE 1 MG/ML -5 ML ONE (08:27)
[2019-12-04] MEDS ORDERED: NALOXONE 0.4 MG/ML VIAL ONE (08:39)
[2019-12-04] MEDS ORDERED: KCL 20 MEQ/100 mL IVPB 20 MEQ/100 ML BAG IV SCH (09:00)
[2019-12-04] MEDS: HYDROMORPHONE HCL 1 MG/ML INJ ONE ×2 (09:13→09:20)
[2019-12-04 09:15] VITALS: TEMP 97.4
[2019-12-04] MEDS ORDERED: MEPERIDINE HCL 25 MG/0.5 ML ONE (09:15)
--- NOTE | 2019-12-04 09:48 | OP ---
Date of Procedure: 12/04/2019 Surgeon: Nicole Bueno MD, Preoperative Diagnosis: Acute appendicitis. Postoperative Diagnosis: Acute appendicitis. Procedure Performed: Laparoscopic appendectomy. Anesthesia: General endotracheal plus local with 0.25% Marcaine with epinephrine. Estimated Blood Loss: Less than 10 mL. Specimen: Vermiform appendix. Findings: Dilated appendix with minimal right lower quadrant inflammatory changes. There was some d iscoloration to the colon and right lower quadrant adjacent to the appendix consistent with an early appendicitis and dilatation of the appendix consistent with possible early appendicitis. Complications: None. Drains: None. Disposition: Transferred to recovery room in good condition. Procedure In Detail: After informed consent was obtained, patient was brought to the operating room, prepped and draped in the usual sterile fashion. After adequate anesthesia was achieved, a supraumb ilical area was anesthetized with 0.25% Marcaine, sharply incised, a 5 mm trocar was introduced in th e abdomen without complication. Insufflation was obtained to 15 mmHg at this time. There was no inj ury to vital structures upon entry into the abdomen. Additional trocar chosen in the suprapubic area . This was similarly anesthetized, sharply incised, and 5 mm trocar was introduced in the abdomen wi thout evidence of complication. The umbilical trocar was then up-sized to a 12 mm under direct visua lization without evidence of complication. Additional trocar site was chosen in the right lower quad rant, 7 in size, sharply incised. A 5 mm trocar was introduced in the abdomen without evidence of co mplication. The patient was positioned in the head down, right side up position, and the ratcheted g rasper was used to grasp the patient's cecum and dissect down. Following the tenia to the appendix, the vermiform appendix was appreciated to be dilated. At this point, a small mesoappendiceal window was created with a [place] retractor. Endo JANE 35 blue load fired across the base of the appendix w ith good approximation of the tissues. The appendix was then grasped, elevated, and the mesoappendix was taken down using a LigaSure device with good hemostasis at this point. The appendix was then pl aced in EndoCatch bag, removed from the umbilical trocar site, and sent off for pathologic examinatio n. The area was then re-insufflated. The area was copiously irrigated multiple times until complete ly clear. The abdomen was inspected. No additional inflammatory changes or infectious process were appreciated. I inspected the pelvis as well. No additional findings. The area was copiously irriga nicole multiple times until completely clear. All effluent was then suctioned out. The patient was pos itioned back in the neutral position. Staple line was found to be in good position without any evide nce of leakage of blood or enteric contents. The umbilical trocar site was then inspected. The umbi lical trocar was removed. The umbilical trocar site was then closed using a Frederick-Rianna suture p asser with 0 Vicryl in an interrupted fashion with good approximation of tissues. The abdomen was th en completely desufflated under direct visualization without evidence of complication. All remaining trocars were removed. All skin incisions were copiously irrigated and closed with interrupted stapl es and sterile dressing placed over top. The patient tolerated the procedure well without evidence o f complication and transferred to PACU in good condition. All counts were correct at the end of the case. KALYN/TOMAS Voice ID: [id number] Report ID: [id number]
[2019-12-04] MEDS ORDERED: POTASSIUM CL SA 10 MEQ TAB PO ONE (10:50)
[2019-12-04] MEDS ORDERED: PIPER/TAZO/NS 3.375gm 3.375 GM/100 ML BAG IVPB SCH (11:00)
[2019-12-04 12:10] VITALS: O2SAT 94
[2019-12-04 12:22] VITALS: BP 112/61
== END 2019-12-04 15:19 | disposition home or self-care (01) | DRG 343 ==
LOC: ER 19:52 → OBSVTOIN 21:14 → ERHOLD 21:14 → 2ND 22:57
PROVIDERS: ADMIT Surgery; ATTEND Surgery
PROC: 0DTJ4ZZ Resection of Appendix, Percutaneous Endoscopic Approach (ICD-10-PCS; principal; 2019-12-04 08:00)
DX: K35.80 Unspecified acute appendicitis (principal); F17.210 Nicotine dependence, cigarettes, uncomplicated
CPT/HCPCS: 36415; 71045; 80048; 80076; 81003; 82150; 82947; 83605; 83690; 83735; 84100; 85025; 88304; 96361; 96365; 99285; J0330; J1100; J1170; J2175; J2250; J2270; J2310; J2405; J2543; J2704; J2710; J3010; J7030; J7120; J7799

== ENCOUNTER 2019-12-06 09:04 | Emergency (ER) | payer SELFPAY ==
[2019-12-06] MEDS ORDERED: ONDANSETRON 4 MG/2 ML VIAL ONE ×2 (09:41→14:18)
[2019-12-06] MEDS ORDERED: NA CHLORIDE 0.9% 1,000 ML ONE (09:41)
[2019-12-06] MEDS ORDERED: MORPHINE 4 MG/ML SYR ONE (09:41)
[2019-12-06 10:06] LABS: Absolute Lymphocytes (CBC) 1.3 K/uL (0.7-4.9); Basophils % 1.2 % (0-1.3); Lymphocytes % 15.4 % (15.3-44.8); MPV 8.9 fL (7.6-11.3); RBC Red Blood Cell Count 5.14 M/uL (4.33-5.43)
[2019-12-06 10:24] LABS: ALT/SGPT 200 U/L (12-78); AST/SGOT 51 U/L (15-37); Albumin 4.1 g/dL (3.4-5.0); Alkaline Phosphatase 78 U/L (45-117); BUN Blood Urea Nitrogen 13 mg/dL (7-18); Bicarbonate 26 mmol/L (21-32); Bilirubin Direct 0.2 mg/dL (0-0.2); Bilirubin Total 0.7 mg/dL (0.2-1.0); Glucose Level 108 mg/dL (74-106); Lipase 67 U/L (73-393); Potassium 3.8 mmol/L (3.5-5.1); Protein, Total 8.5 g/dL (6.4-8.2); Sodium Level 139 mmol/L (136-145)
--- NOTE | 2019-12-06 10:36 | RAD REPORT ---
EXAM DESCRIPTION: CTAbdomen Pelvis W Contrast - 12/06/2019 10:16 am CLINICAL HISTORY: Abdominal pain. abd pain COMPARISON: Abdomen Pelvis W Contrast dated 12/02/2019 TECHNIQUE: Biphasic CT imaging of the abdomen and pelvis was performed with 100 ml non-ionic IV cont rast. All CT scans are performed using dose optimization technique as appropriate and may include automated exposure control or mA/KV adjustment according to patient size. FINDINGS: The lung bases are clear. The liver is diffusely fatty. The spleen, pancreas, adrenal glands and kidneys are within normal limi ts. No bowel obstruction, free fluid or abscess. Tiny bubbles of pneumoperitoneum seen likely attributabl e to recent surgery. Appendectomy clips. Moderate stool is retained in the colon. No evidence of sign ificant lymphadenopathy. No suspicious bony findings. IMPRESSION: Postsurgical changes of recent appendectomy noted. No complication evident. Moderate stool is retained throughout the colon. Fatty liver.
[2019-12-06 12:21] LABS: Absolute Lymphocytes (CBC) 1.4 K/uL (0.7-4.9); Basophils % 0.5 % (0-1.3); Hematocrit 44.1 % (39.6-49.0); Lymphocytes % 9.3 % (15.3-44.8); MPV 8.5 fL (7.6-11.3)
[2019-12-06] MEDS ORDERED: CIPROFLOXACIN HCL 500 MG TAB ONE (12:50)
[2019-12-06] MEDS ORDERED: metroNIDAZOLE 500 MG TABLET ONE (14:26)
[2019-12-06 14:59] LABS: ALT/SGPT 190 U/L (12-78); AST/SGOT 47 U/L (15-37); Alkaline Phosphatase 74 U/L (45-117); BUN Blood Urea Nitrogen 12 mg/dL (7-18); Bicarbonate 23 mmol/L (21-32); Bilirubin Direct 0.2 mg/dL (0-0.2); Bilirubin Total 0.7 mg/dL (0.2-1.0); Glucose Level 100 mg/dL (74-106); Lipase 57 U/L (73-393); Potassium 3.9 mmol/L (3.5-5.1); Protein, Total 8.2 g/dL (6.4-8.2); Sodium Level 138 mmol/L (136-145)
[2019-12-06 16:05] VITALS: TEMP 98.9
[2019-12-06 16:06] VITALS: BP 141/66; O2SAT 96
--- NOTE | 2019-12-11 14:24 | ER ---
Nurse's Notes [facility] Name: Eldon Decker Age: 24 yrs Sex: Male : 1995 Arrival Date: 12/06/2019 Time: 09:10 Bed 15 Private MD: Diagnosis: Abdominal and pelvic pain;Vomiting Presentation: 12/05 08:59 Chief complaint: EMS states: n/v/abd pain/chest pain, started vomiting blood yesterday sv from brown to red in color. s/p appy on 12/04/19. BP 128/78 HR-100 98.7. Pt stated that he had started with the n/v on the day of discharge. Coronavirus screen: Proceed with normal triage. Patient denies a cough. Patient denies shortness of breath or difficulty breathing. Patient denies measured and/or subjective temperature greater than 100.4F prior to today's visit. Patient denies travel on a cruise ship or to a country the [facility] currently lists as an affected area. Patient denies contact with known and/or suspected case of COVID-19. Ebola Screen: No symptoms or risks identified at this time. Initial Sepsis Screen: Does the patient meet any 2 criteria? HR > 90 bpm. No. Patient's initial sepsis screen is negative. Does the patient have a suspected source of infection? Yes: Acute abdominal pain. Risk Assessment: Do you want to hurt yourself or someone else? Patient reports no desire to harm self or others. Onset of symptoms was December 04, 2019. 08:59 Method Of Arrival: EMS: [facility] sv 08:59 Acuity: MARY ELLEN 3 sv Triage Assessment: 09:10 General: Appears in no apparent distress. uncomfortable, Behavior is cooperative, jl7 anxious. GI: Reports constipation, nausea, vomiting. Historical: - Allergies: 09:13 No Known Allergies; sv - Home Meds: 09:45 None [Active]; jl7 - PMHx: 09:13 None; sv - PSHx: 09:13 Appendectomy; sv - Immunization history:: Adult Immunizations up to date. Screenin:13 Abuse screen: Denies threats or abuse. Denies injuries from another. Nutritional sv screening: No deficits noted. Tuberculosis screening: No symptoms or risk factors identified. Fall Risk None identified. Assessment: 09:20 General: Appears in no apparent distress. uncomfortable, Behavior is cooperative, jl7 anxious. Pain: Complains of pain in esophagus and inscision sites Pain currently is 10 out of 10 on a pain scale. Pain began 2-3 days ago. Is continuous. Neuro: Level of Consciousness is awake, alert, obeys commands, Oriented to person, place, time, situation. Cardiovascular: Patient's skin is warm and dry. Respiratory: Airway is patent Respiratory effort is even, unlabored, Respiratory pattern is regular, symmetrical. GI: Abdomen is round distended, Reports bloating, constipation, intolerance of fluids, intolerance of food, nausea, vomiting. : Reports urinary frequency. Derm: Skin is pink, warm \T\ dry. Wound noted Other: surgical incisions on lower abdomen appear normal, no redness, no swelling, no drainage noted. 10:04 Reassessment: Pt to CT at this time via stretcher. ah 11:00 Reassessment: Patient and/or family updated on plan of care and expected duration. Pain ah level reassessed. Patient is alert, oriented x 3, equal unlabored respirations, skin warm/dry/pink. 12:00 Reassessment: Patient and/or family updated on plan of care and expected duration. Pain ah level reassessed. Patient is alert, oriented x 3, equal unlabored respirations, skin warm/dry/pink. No needs voiced at this time. 13:00 Reassessment: Patient and/or family updated on plan of care and expected duration. Pain ah level reassessed. No needs voiced at this time. 14:00 Reassessment: Pt with c/o nausea. Informed MD. MD to bedside to explain plan and need ah to fill prescriptions. Order for Zofran received and given. 15:00 Reassessment: Discharge instructions given to pt. Advised Pt to fill prescriptions dominic ah and to finish all antibiotics as directed. 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 Pt voiced understanding. Vital Signs: 08:59 BP 135 / 88; Pulse 96; Resp 18; Temp 98.7; Pulse Ox 97% ; Weight 81.65 kg; Height 5 ft. sv 3 in. (160.02 cm); Pain 10/10; 10:37 BP 126 / 67; Pulse 100; Resp 16; Pulse Ox 97% ; ah 12:00 BP 129 / 81; Pulse 100; Resp 16; Pulse Ox 95% ; ah 13:00 BP 112 / 61; Pulse 91; Resp 18; Pulse Ox 96% ; ah 14:07 BP 150 / 86; Pulse 98; Resp 16; Temp 98.9(O); Pulse Ox 98% on R/A; mh5 15:00 BP 141 / 66; Pulse 106; Resp 18; Pulse Ox 96% ; ah 08:59 Body Mass Index 31.89 (81.65 kg, 160.02 cm) ED Course: 09:10 Patient arrived in ED. sv 09:13 Triage completed. sv 09:13 Arm band placed on. sv 09:13 Patient has correct armband on for positive identification. Bed in low position. Call sv light in reach. Pulse ox on. NIBP on. Door closed. Head of bed elevated. 09:18 Driss Rogers MD is Attending Physician. kdr 09:27 Ellie Ortiz, JIM is Primary Nurse. jl7 09:31 Initial lab(s) drawn, by mi, sent to lab. Inserted saline lock: 20 gauge in right jl7 wrist, using aseptic technique. Blood collected. 14:23 Primary Nurse role handed off by Ellie Ortiz, JIM 14:23 Merissa Gan, RN is Primary Nurse. 15:30 No provider procedures requiring assistance completed. IV discontinued, intact, ah bleeding controlled, No redness/swelling at site. Pressure dressing applied. Administered Medications: 09:39 Drug: NS 0.9% 1000 ml Route: IV; Rate: 1 bolus; Site: right wrist; jl7 15:43 Follow up: Response: No adverse reaction; IV Status: Completed infusion 09:40 Drug: Zofran (Ondansetron) 4 mg Route: IVP; Site: right wrist; jl7 15:43 Follow up: Response: No adverse reaction 09:42 Drug: morphine 4 mg Route: IVP; Site: right wrist; jl7 15:42 Follow up: Response: No adverse reaction 12:45 Drug: Cipro 500 mg Route: PO; 14:22 Follow up: Response: No adverse reaction 14:17 Drug: Zofran (Ondansetron) 4 mg Route: IVP; Site: right wrist; 15:42 Follow up: Response: No adverse reaction 14:21 Drug: Flagyl 500 mg Route: PO; 15:42 Follow up: Response: No adverse reaction Outcome: 15:16 Discharge ordered by . [facility] 15:30 Discharged to home ambulatory. 15:30 Condition: good 15:30 Discharge instructions given to patient, Instructed on discharge instructions, follow up and referral plans. medication usage, Demonstrated understanding of instructions, follow-up care, medications, wound care, Prescriptions given X 3. 15:41 Patient left the ED. Signatures: Esperanza Mcfadden, RN RN Paty Osullivan RN RN Driss Rick MD MD kdr Martinez, Maria [facility] Ellie Ortiz RN RN jl7 Merissa Gan RN RN
--- NOTE | 2019-12-11 14:24 | EDPHYS ---
Physician Documentation [facility] Name: Eldon Decker Age: 24 yrs Sex: Male : 1995 Arrival Date: 12/06/2019 Time: 09:10 Bed 15 Private MD: ED Physician Driss Rogers HPI: 12/05 09:25 This 24 yrs old Male presents to ER via EMS with complaints of kdr Nausea/Vomiting, Abdominal Pain, Chest Pain. 09:25 The patient presents to the emergency department with nausea, that is mild, vomiting, kdr that is intermittent, described as blood streaked. Onset: The symptoms/episode began/occurred gradually, 2 day(s) ago. Possible causes: The patient is s/p appy on the . Has not filled his Rx and has not had a BM. States that he is in too much pain and is not able to care for himself and needs to be admitted. The symptoms are aggravated by movement, The symptoms are alleviated by nothing. Associated signs and symptoms: Pertinent positives: abdominal pain, constipation, GI bleeding, nausea, vomiting, Pertinent negatives: diarrhea, dysuria, fever, flatulence, hematuria. Severity of symptoms: At their worst the symptoms were mild moderate just prior to arrival, in the emergency department the symptoms are unchanged. The patient has not experienced similar symptoms in the past. The patient has been recently been admitted at [facility], was discharged earlier this week. Historical: - Allergies: 09:13 No Known Allergies; sv - Home Meds: 09:45 None [Active]; jl7 - PMHx: 09:13 None; sv - PSHx: 09:13 Appendectomy; sv - Immunization history:: Adult Immunizations up to date. ROS: 09:25 Constitutional: Negative for fever, chills, and weight loss, Eyes: Negative for injury, kdr pain, redness, and discharge, ENT: Negative for injury, pain, and discharge, Neck: Negative for injury, pain, and swelling, Respiratory: Negative for shortness of breath, cough, wheezing, and pleuritic chest pain, Back: Negative for injury and pain, : Negative for injury, bleeding, discharge, and swelling, MS/Extremity: Negative for injury and deformity, Skin: Negative for injury, rash, and discoloration, Neuro: Negative for headache, weakness, numbness, tingling, and seizure activity. Psych: Negative for depression, anxiety, suicide ideation, homicidal ideation, and hallucinations, Allergy/Immunology: Negative for hives, rash, and allergies, Endocrine: Negative for neck swelling, polydipsia, polyuria, polyphagia, and marked weight changes, Hematologic/Lymphatic: Negative for swollen nodes, abnormal bleeding, and unusual bruising. 09:25 Cardiovascular: Positive for chest pain, of the right clavicle, anterior aspect of right upper chest and xyphoid area, Negative for edema, orthopnea, palpitations, paroxysmal nocturnal dyspnea. Exam: 09:25 Constitutional: This is a well developed, well nourished patient who is awake, alert, kdr and in no acute distress. Head/Face: Normocephalic, atraumatic. Eyes: Pupils equal round and reactive to light, extra-ocular motions intact. Lids and lashes normal. Conjunctiva and sclera are non-icteric and not injected. Cornea within normal limits. Periorbital areas with no swelling, redness, or edema. Neck: Trachea midline, no thyromegaly or masses palpated, and no cervical lymphadenopathy. Supple, full range of motion without nuchal rigidity, or vertebral point tenderness. No Meningismus. Chest/axilla: Normal chest wall appearance and motion. Nontender with no deformity. No lesions are appreciated. Cardiovascular: Regular rate and rhythm with a normal S1 and S2. No gallops, murmurs, or rubs. Normal PMI, no JVD. No pulse deficits. Respiratory: Lungs have equal breath sounds bilaterally, clear to auscultation and percussion. No rales, rhonchi or wheezes noted. No increased work of breathing, no retractions or nasal flaring. Back: No spinal tenderness. No costovertebral tenderness. Full range of motion. Skin: Warm, dry with normal turgor. Normal color with no rashes, no lesions, and no evidence of cellulitis. MS/ Extremity: Pulses equal, no cyanosis. Neurovascular intact. Full, normal range of motion. Neuro: Awake and alert, GCS 15, oriented to person, place, time, and situation. Cranial nerves II-XII grossly intact. Motor strength 5/5 in all extremities. Sensory grossly intact. Cerebellar exam normal. Normal gait. Psych: Awake, alert, with orientation to person, place and time. Behavior, mood, and affect are within normal limits. 09:25 Abdomen/GI: Inspection: distension, that is mild, Bowel sounds: active, diminished, in all quadrants, Palpation: soft, mild abdominal tenderness, in the abdomen diffusely. Vital Signs: 08:59 BP 135 / 88; Pulse 96; Resp 18; Temp 98.7; Pulse Ox 97% ; Weight 81.65 kg; Height 5 ft. sv 3 in. (160.02 cm); Pain 10/10; 10:37 BP 126 / 67; Pulse 100; Resp 16; Pulse Ox 97% ; ah 12:00 BP 129 / 81; Pulse 100; Resp 16; Pulse Ox 95% ; ah 13:00 BP 112 / 61; Pulse 91; Resp 18; Pulse Ox 96% ; ah 14:07 BP 150 / 86; Pulse 98; Resp 16; Temp 98.9(O); Pulse Ox 98% on R/A; mh5 15:00 BP 141 / 66; Pulse 106; Resp 18; Pulse Ox 96% ; ah 08:59 Body Mass Index 31.89 (81.65 kg, 160.02 cm) sv MDM: 09:25 Data reviewed: vital signs, nurses notes, lab test result(s), radiologic studies. kdr Counseling: I had a detailed discussion with the patient and/or guardian regarding: the historical points, exam findings, and any diagnostic results supporting the discharge/admit diagnosis, lab results, radiology results. 15:16 Patient medically screened. [facility] 12/05 09:18 Order name: Basic Metabolic Panel [facility] 12/05 09:18 Order name: CBC with Diff [facility] 12/05 09:18 Order name: Hepatic Function [facility] 12/05 09:18 Order name: Lipase [facility] 12/05 12:23 Order name: CBC with Automated Diff; Complete Time: 12:38 [facility] 12/05 13:42 Order name: Basic Metabolic Panel [facility] 12/05 09:24 Order name: CT Abd/Pelvis - IV Contrast Only [facility] 12/05 12:57 Order name: CT; Complete Time: 13:56 [facility] 12/05 13:42 Order name: Liver (Hepatic) Function [facility] 12/05 13:42 Order name: Lipase [facility] 12/05 13:42 Order name: CBC with Automated Diff [facility] 12/05 13:55 Order name: CREATININE WHOLE BLOOD [facility] 12/05 09:18 Order name: IV Saline Lock; Complete Time: : kdr 12/05 09:18 Order name: Labs collected and sent; Complete Time: kdr Administered Medications: 09:39 Drug: NS 0.9% 1000 ml Route: IV; Rate: 1 bolus; Site: right wrist; jl7 15:43 Follow up: Response: No adverse reaction; IV Status: Completed infusion 09:40 Drug: Zofran (Ondansetron) 4 mg Route: IVP; Site: right wrist; jl7 15:43 Follow up: Response: No adverse reaction 09:42 Drug: morphine 4 mg Route: IVP; Site: right wrist; jl7 15:42 Follow up: Response: No adverse reaction 12:45 Drug: Cipro 500 mg Route: PO; 14:22 Follow up: Response: No adverse reaction 14:17 Drug: Zofran (Ondansetron) 4 mg Route: IVP; Site: right wrist; 15:42 Follow up: Response: No adverse reaction 14:21 Drug: Flagyl 500 mg Route: PO; 15:42 Follow up: Response: No adverse reaction Disposition: 12/06/19 15:16 Discharged to Home. Impression: Abdominal and pelvic pain, Vomiting. - Condition is Stable. - Discharge Instructions: Abdominal Pain, Adult, Fyck-ls-Odvy. - Prescriptions for Cipro 500 mg Oral Tablet - take 1 tablet by ORAL route every 12 hours for 10 days; 20 tablet. Flagyl 500 mg Oral Tablet - take 1 tablet by ORAL route every 6 hours for 10 days; 40 tablet. promethazine 25 mg Oral Tablet - take 1 tablet by ORAL route every 6 hours As needed; 20 tablet. - Medication Reconciliation Form, Thank You Letter, Antibiotic Education form. - Follow up: Private Physician; When: 2 - 3 days; Reason: If symptoms return, Further diagnostic work-up, Recheck today's complaints, Continuance of care, Re-evaluation by your physician. - Problem is an ongoing problem. - Symptoms have improved. Signatures: Dispatcher [employer] [facility] Esperanza Mcfadden RN RN kl Verde, Stephanie, RN RN sv Rittger, Kevin, MD MD kdr Leal, Jahala, RN RN [facility] Merissa Gan RN RN Corrections: (The following items were deleted from the chart) 15:41 15:16 12/06/2019 15:16 Discharged to Home. Impression: Abdominal and pelvic pain; ah Vomiting. Condition is Stable. Forms are Medication Reconciliation Form, Thank You Letter, Antibiotic Education, Prescription Opioid Use. Follow up: Private Physician; When: 2 - 3 days; Reason: If symptoms return, Further diagnostic work-up, Recheck today's complaints, Continuance of care, Re-evaluation by your physician. Problem is an ongoing problem. Symptoms have improved. kdr
== END 2019-12-06 15:41 | disposition home or self-care (01) ==
LOC: ER 09:04
DX: R10.2 Pelvic and perineal pain (principal)
CPT/HCPCS: 36415; 74177; 80048; 80076; 82565; 83690; 85025; 96361; 96374; 96375; 99284; J2405; J7030; Q9967

== ENCOUNTER 2021-02-24 11:17 | Emergency (ER) | payer SELFPAY ==
--- NOTE | 2021-02-24 12:25 | RAD REPORT ---
EXAM DESCRIPTION: RAD - Chest Single View - 02/24/2021 12:18 pm CLINICAL HISTORY: Chest pain;SOB COMPARISON: Chest Single View dated 12/02/2019 FINDINGS: No evidence of edema or pneumonia. The heart size is within normal limits.No acute osseous abnormality. No significant pleural effusions or pneumothorax. IMPRESSION: No acute cardiopulmonary disease.
[2021-02-24 12:47] LABS: Absolute Lymphocytes (CBC) 1.3 K/uL (0.7-4.9); Basophils % 0.8 % (0-1.3); Hematocrit 44.7 % (39.6-49.0); Lymphocytes % 7.6 % (15.3-44.8); MPV 7.8 fL (7.6-11.3); RBC Red Blood Cell Count 5.18 M/uL (4.33-5.43)
[2021-02-24 13:13] LABS: Protime INR 1.09
[2021-02-24 13:27] LABS: Bilirubin Direct 0.2 mg/dL (0-0.2); Magnesium 1.9 mg/dL (1.8-2.4); Potassium 3.6 mmol/L (3.5-5.1); Protein, Total 9.4 g/dL (6.4-8.2); Troponin (Emerg Dept Use Only) 0.03 ng/mL (0.0-0.045)
--- NOTE | 2021-02-24 14:04 | RAD REPORT ---
EXAM DESCRIPTION: CT - Chest For Pe Angio - 02/24/2021 1:43 pm CLINICAL HISTORY: SOB COMPARISON: Chest Single View dated 02/24/2021 TECHNIQUE: Dynamically enhanced 3 mm thick images of the chest were obtained during administration o f approximately 150mL Isovue 370 IV contrast. Coronal and oblique MIP reconstruction images were gene rated and reviewed. Exam utilizes a protocol to evaluate the pulmonary arterial tree. All CT scans are performed using dose optimization technique as appropriate and may include automated exposure control or mA/KV adjustment according to patient size. FINDINGS: No pulmonary emboli are identified. The aorta as imaged shows no acute or suspicious finding. No pericardial thickening or effusion. No peripheral mass consolidation. No residual COVID-19 pneumonia changes seen. There is some partial atelectasis in the lower lobes with accentuated interstitial markings due to respiratory motion. No p leural effusion or pleural thickening. Small reactive type mediastinal and hilar lymph nodes present. No chest wall masses or abnormal axill meron lymphadenopathy. Limited upper abdomen imaging shows diffuse fatty infiltration of a partially imaged liver. IMPRESSION: No pulmonary emboli identified. No mass or consolidation. No classic COVID pneumonia pattern is seen. Respiratory motion is limiting. An interstitial edema or infiltrate component is possible. Diffuse fatty infiltration of the liver.
--- NOTE | 2021-02-24 16:53 | EDPHYS ---
Physician Documentation [facility] Name: Eldon Decker Age: 25 yrs Sex: Male : 1995 Arrival Date: 02/24/2021 Time: 11:18 Bed Waiting Private MD: ED Physician Brittany La HPI: 02/24 12:06 This 25 yrs old Male presents to ER via Ambulatory with complaints of pm1 Breathing Difficulty. 12:06 The patient has shortness of breath with exertion. Onset: The symptoms/episode pm1 began/occurred today. Duration: The symptoms Present during exertion. 12:06 The patient's shortness of breath is aggravated by exertion, is alleviated by rest. pm1 Associated signs and symptoms: Pertinent positives: chest pain, Pertinent negatives: non-productive cough, productive cough, fever, nausea, vomiting. Severity of symptoms: in the emergency department the symptoms have resolved Pain is currently a 0 / 10. The patient has not experienced similar symptoms in the past. The patient has not recently seen a physician. Diagnosed with Covid approximately 3 weeks ago. Patient symptoms of Covid resolved completely approximately 2 days ago, therefore patient return to work today for the first time. On exertion patient reported chest pain and shortness of breath. Symptoms all relieved with rest. Historical: - Allergies: 11:39 No Known Allergies; ss - Home Meds: 11:39 None [Active]; ss - PMHx: 11:39 None; ss - PSHx: 11:39 Appendectomy; ss - Immunization history:: Adult Immunizations unknown. - Social history:: Smoking status: Patient denies any tobacco usage or history of. ROS: 12:06 Constitutional: Negative for fever, chills, and weight loss. pm1 12:06 Abdomen/GI: Negative for abdominal pain, nausea, vomiting, diarrhea, and constipation, Back: Negative for injury and pain, MS/Extremity: Negative for injury and deformity, Skin: Negative for injury, rash, and discoloration, Neuro: Negative for headache, weakness, numbness, tingling, and seizure. 12:06 Cardiovascular: Positive for chest pain, Negative for edema, palpitations. 12:06 Respiratory: Positive for shortness of breath, Negative for cough. 12:06 All other systems are negative. Exam: 12:06 Constitutional: This is a well developed, well nourished patient who is awake, alert, pm1 and in no acute distress. Head/Face: Normocephalic, atraumatic. Chest/axilla: Normal chest wall appearance and motion. Nontender with no deformity. No lesions are appreciated. 12:06 Back: No spinal tenderness. No costovertebral tenderness. Full range of motion. Skin: Warm, dry with normal turgor. Normal color with no rashes, no lesions, and no evidence of cellulitis. MS/ Extremity: Pulses equal, no cyanosis. Neurovascular intact. Full, normal range of motion. 12:06 Cardiovascular: Exam negative for acute changes, Rate: tachycardic, Rhythm: regular, Pulses: no pulse deficits are appreciated. 12:06 Respiratory: Exam negative for acute changes, the patient does not display signs of respiratory distress, Respirations: normal, Breath sounds: are clear throughout. 12:06 Abdomen/GI: Inspection: abdomen appears normal, Palpation: abdomen is soft and non-tender, in all quadrants. 12:06 Neuro: Exam negative for acute changes, Orientation: is normal, Mentation: is normal, Motor: is normal, moves all fours. Vital Signs: 11:34 BP 124 / 76; Pulse 121; Resp 20; Temp 98.9(TE); Pulse Ox 97% on R/A; ss MDM: 12:02 Patient medically screened. pm1 14:44 Data interpreted: Pulse oximetry: on room air is 97 %. Interpretation: normal. pm1 Counseling: I had a detailed discussion with the patient and/or guardian regarding: the historical points, exam findings, and any diagnostic results supporting the discharge/admit diagnosis, lab results, radiology results, Pending swab results. 16:41 Data reviewed: nurses notes. pm1 16:41 ED course: Unable to find the patient in ER waiting to update him on swab results. pm1 16:44 ED course: Called patient, no answer. Left message to call me back so I can update him pm1 on results. 16:53 ED course: Patient eloped from ER. Patient left without informing anyone. Therefore pm1 unable to update patient on final results of work-up and unable to reevaluate the patient and his vital signs. Patient clinically appeared to have dehydration. Patient has a physical job and was working prior to arrival. If the patient would have been placed in an ER room, he would have been administered IV fluids and his vital signs would have been reevaluated and addressed. 02/24 11:43 Order name: Basic Metabolic Panel; Complete Time: 13:46 pm1 02/24 11:43 Order name: CBC with Diff; Complete Time: 13:00 pm1 02/24 11:43 Order name: LFT's; Complete Time: 13:46 pm1 02/24 11:43 Order name: Magnesium; Complete Time: 13:46 pm1 02/24 11:43 Order name: NT PRO-BNP; Complete Time: 13:46 pm1 02/24 11:43 Order name: PT-INR; Complete Time: 13:24 pm1 02/24 11:43 Order name: Troponin (emerg Dept Use Only); Complete Time: 13:46 pm1 02/24 11:43 Order name: XRAY Chest (1 view); Complete Time: 12:33 pm1 02/24 11:43 Order name: D-Dimer; Complete Time: 13:24 pm1 02/24 13:22 Order name: Flu; Complete Time: 15:23 pm1 02/24 13:22 Order name: Strep; Complete Time: 15:23 pm1 02/24 15:07 Order name: Throat Culture EDHI 02/24 16:59 Order name: SARS-COV-2 RT PCR; Complete Time: 17:00 EDMS 02/24 11:43 Order name: EKG; Complete Time: 11:44 pm1 02/24 11:43 Order name: Cardiac monitoring; Complete Time: 14:59 pm1 02/24 11:43 Order name: EKG - Nurse/Tech; Complete Time: 11:45 pm1 02/24 11:43 Order name: IV Saline Lock; Complete Time: 12:55 pm1 02/24 11:43 Order name: Labs collected and sent; Complete Time: 12:55 pm1 02/24 11:43 Order name: O2 Per Protocol; Complete Time: 14:59 pm1 02/24 11:43 Order name: O2 Sat Monitoring; Complete Time: 14:59 pm1 02/24 13:23 Order name: CT Chest For PE Angio; Complete Time: 14:05 pm1 Administered Medications: No medications were administered Disposition Summary: 02/24/21 16:52 Eloped Disposition: after being seen by provider pm1 Problem: new pm1 Symptoms: have improved pm1 Reason: unknown pm1 Condition: Undetermined pm1 Diagnosis - Chest pain, unspecified pm1 - Dyspnea, unspecified pm1 Followup: pm1 - With: Emergency Department - When: As needed - Reason: Worsening of condition Followup: pm1 - With: Private Physician - When: Upon discharge from the Emergency Department - Reason: Recheck today's complaints, Continuance of care, Re-evaluation by your physician Signatures: Dispatcher [employer] EDOneida Forrest RN RN ss Raphael Shields NP LITIGATION ASSISTANT pm1 Corrections: (The following items were deleted from the chart) 15:48 13:23 CORONAVIRUS+MR.LAB.BRZ ordered. [facility] EDHI
--- NOTE | 2021-02-24 16:53 | ER ---
Nurse's Notes [facility] Name: Eldon Decker Age: 25 yrs Sex: Male : 1995 Arrival Date: 02/24/2021 Time: 11:18 Bed Waiting Private MD: Diagnosis: Chest pain, unspecified;Dyspnea, unspecified Presentation: 02/24 11:34 Chief complaint: Patient states: "A few hours ago I was at work, we weren't having too ss hard of a day, but I just couldn't catch my breath, and I had pressure in my chest and back and I just got over covid I even had negative tests and I was doing good. I just need to get checked out.". Coronavirus screen: Client denies travel out of the [place] in the last 14 days. Ebola Screen: Patient denies exposure to infectious person. Patient denies travel to an Ebola-affected area in the 21 days before illness onset. Initial Sepsis Screen: Does the patient meet any 2 criteria? No. Patient's initial sepsis screen is negative. Does the patient have a suspected source of infection? No. Patient's initial sepsis screen is negative. Risk Assessment: Do you want to hurt yourself or someone else? Patient reports no desire to harm self or others. Onset of symptoms was February 24, 2021. 11:34 Method Of Arrival: Ambulatory ss 11:34 Acuity: MARY ELLEN 2 ss Historical: - Allergies: 11:39 No Known Allergies; ss - Home Meds: 11:39 None [Active]; ss - PMHx: 11:39 None; ss - PSHx: 11:39 Appendectomy; ss - Immunization history:: Adult Immunizations unknown. - Social history:: Smoking status: Patient denies any tobacco usage or history of. Vital Signs: 11:34 BP 124 / 76; Pulse 121; Resp 20; Temp 98.9(TE); Pulse Ox 97% on R/A; ss ED Course: 11:18 Patient arrived in ED. ds1 11:34 Arm band placed on right wrist. ss 11:39 Triage completed. ss 11:43 Raphael Shields NP is PHCP. pm1 11:43 Brittany La is Attending Physician. pm1 12:18 XRAY Chest (1 view) In Process Unspecified. EDMS 12:35 Inserted saline lock: 20 gauge in left antecubital area, using aseptic technique. hb ,using aseptic technique. by [place] Blood collected. 13:43 CT Chest For PE Angio In Process Unspecified. EDMS 13:55 COVID swab sent to lab. Flu and/or RSV swab sent to lab. Strep swab sent to lab. jp3 Administered Medications: No medications were administered Outcome: 17:09 Patient left the ED. iw Signatures: Dispatcher [employer] EDIN Shiloh Sánchez ds1 Luiza Chatman, RN JIM Oneida Robledo RN RN ss Raphael Shields, COUNSELING PROGRAM LEADER COUNSELING PROGRAM LEADER pm1 Shira Urias, RN RN Berny Mireles jp3
[2021-02-24 17:31] VITALS: BP 124/76; TEMP 98.9; O2SAT 97
== END 2021-02-24 17:09 | disposition left against medical advice (07) ==
LOC: ER 11:17
DX: R07.9 Chest pain, unspecified (principal); Z20.822 Contact with and (suspected) exposure to COVID-19
CPT/HCPCS: 36415; 71045; 71275; 80048; 80076; 83735; 83880; 84484; 85025; 85379; 85610; 87070; 87081; 87804; 93005; 99283; Q9967; U0003

== ENCOUNTER 2021-12-26 14:03 | Emergency (ER) | payer SELFPAY ==
[2021-12-26] MEDS ORDERED: ONDANSETRON 4 MG/2 ML VIAL ONE (15:04)
[2021-12-26 15:11] LABS: Albumin 4.2 g/dL (3.4-5.0); Bilirubin Total 0.8 mg/dL (0.2-1.0); Potassium 3.5 mmol/L (3.5-5.1); Protein, Total 8.4 g/dL (6.4-8.2)
[2021-12-26 15:15] LABS: Absolute Lymphocytes (CBC) 1.5 K/uL (0.7-4.9); Lymphocytes % 12.6 % (15.3-44.8); MPV 8.3 fL (7.6-11.3); RBC Red Blood Cell Count 5.18 M/uL (4.33-5.43)
--- NOTE | 2021-12-26 16:18 | EDPHYS ---
Physician Documentation [facility] Name: Eldon Decker Age: 26 yrs Sex: Male : 1995 Arrival Date: 12/26/2021 Time: 14:10 Bed 8 Private MD: ED Physician Gaudencio Reaves HPI: 12/26 16:16 This 26 yrs old Male presents to ER via EMS with complaints of epigastric abd ma2 burning and vomiting. 16:16 Onset: The symptoms/episode began/occurred gradually, 2 day(s) ago. Associated signs ma2 and symptoms: Pertinent negatives: anorexia, blood in stools, chest pain, constipation, diarrhea, dysuria, fever, headache, hematuria, nausea, palpitations, shortness of breath, testicular pain, vomiting blood. Severity of pain: At its worst the pain was mild in the emergency department the pain is unchanged. Historical: - Allergies: 14:16 No Known Allergies; jd3 - Home Meds: 14:16 None [Active]; jd3 - PMHx: 14:16 None; jd3 - PSHx: 14:16 Appendectomy; jd3 - Immunization history:: Adult Immunizations up to date, Client reports having NOT received the Covid vaccine. - Social history:: Smoking status: Patient denies any tobacco usage or history of. Patient/guardian denies using alcohol, street drugs, The patient lives with family. - Family history:: not pertinent. ROS: 16:16 Constitutional: Negative for fever, chills, and weight loss. ma2 16:16 All other systems are negative. Exam: 16:16 Constitutional: This is a well developed, well nourished patient who is awake, alert, ma2 and in no acute distress. Head/Face: Normocephalic, atraumatic. Eyes: Pupils equal round and reactive to light, extra-ocular motions intact. Lids and lashes normal. Conjunctiva and sclera are non-icteric and not injected. Cornea within normal limits. Periorbital areas with no swelling, redness, or edema. ENT: Nares patent. No nasal discharge, no septal abnormalities noted. Tympanic membranes are normal and external auditory canals are clear. Oropharynx with no redness, swelling, or masses, exudates, or evidence of obstruction, uvula midline. Mucous membranes moist. Neck: Trachea midline, no thyromegaly or masses palpated, and no cervical lymphadenopathy. Supple, full range of motion without nuchal rigidity, or vertebral point tenderness. No Meningismus. Chest/axilla: Normal chest wall appearance and motion. Nontender with no deformity. No lesions are appreciated. Cardiovascular: Regular rate and rhythm with a normal S1 and S2. No gallops, murmurs, or rubs. Normal PMI, no JVD. No pulse deficits. Respiratory: Lungs have equal breath sounds bilaterally, clear to auscultation and percussion. No rales, rhonchi or wheezes noted. No increased work of breathing, no retractions or nasal flaring. Abdomen/GI: Soft, non-tender, with normal bowel sounds. No distension or tympany. No guarding or rebound. No evidence of tenderness throughout. Skin: Warm, dry with normal turgor. Normal color with no rashes, no lesions, and no evidence of cellulitis. MS/ Extremity: Pulses equal, no cyanosis. Neurovascular intact. Full, normal range of motion. Neuro: Awake and alert, GCS 15, oriented to person, place, time, and situation. Cranial nerves II-XII grossly intact. Motor strength 5/5 in all extremities. Sensory grossly intact. Cerebellar exam normal. Normal gait. Vital Signs: 14:16 BP 138 / 87; Pulse 96; Resp 17 S; Temp 98.6(O); Pulse Ox 98% on R/A; Weight 83.91 kg jd3 (R); Height 5 ft. 3 in. (160.02 cm) (R); Pain 3/10; 16:49 BP 124 / 90; Pulse 89; Resp 16 S; Pulse Ox 99% on R/A; jd3 14:16 Body Mass Index 32.77 (83.91 kg, 160.02 cm) jd3 MDM: 16:16 Differential diagnosis: gastritis, gastroesophageal reflux disease, Hepatitis, ma2 Irritable bowel syndrome. Data reviewed: vital signs, nurses notes. Counseling: I had a detailed discussion with the patient and/or guardian regarding: the historical points, exam findings, and any diagnostic results supporting the discharge/admit diagnosis, the presence of at least one elevated blood pressure reading (>120/80) during this emergency department visit, the need for outpatient follow up. Response to treatment: the patient's symptoms have markedly improved after treatment. 16:17 Patient medically screened. ma2 12/26 14:19 Order name: CBC with Diff; Complete Time: 15:50 ma2 12/26 14:19 Order name: CMP; Complete Time: 15:28 ma2 12/26 14:19 Order name: Lipase; Complete Time: 15:28 ma2 12/26 14:19 Order name: IV Saline Lock; Complete Time: 14:45 ma2 12/26 14:19 Order name: Labs collected and sent; Complete Time: 14:45 ma2 Administered Medications: 15:02 Drug: Zofran (Ondansetron) 4 mg Route: IVP; Site: right forearm; jd3 16:00 Follow up: Response: No adverse reaction jd3 Disposition Summary: 12/26/21 16:17 Discharge Ordered Location: Home ma2 Condition: Stable ma2 Diagnosis - Upper abdominal pain, unspecified ma2 Followup: ma2 - With: Private Physician - When: Tomorrow - Reason: If symptoms return, Continuance of care Discharge Instructions: - Discharge Summary Sheet ma2 - Abdominal Pain, Adult ma2 Forms: - Medication Reconciliation Form ma2 - Thank You Letter ma2 - Antibiotic Education ma2 - Prescription Opioid Use ma2 Prescriptions: - Zofran 4 mg Oral Tablet - take 1 tablet by ORAL route every 12 hours As needed; 20 tablet; Refills: 0, ma2 Product Selection Permitted - Pepcid 20 mg Oral Tablet - take 1 tablet by ORAL route once daily; 20 tablet; Refills: 0, Product ma2 Selection Permitted Signatures: Dispatcher [employer] Benji Sullivan RN RN jGaudencio Brown MD MD ma2
--- NOTE | 2021-12-26 16:18 | ER ---
Nurse's Notes [facility] Name: Eldon Decker Age: 26 yrs Sex: Male : 1995 Arrival Date: 12/26/2021 Time: 14:10 Bed 8 Private MD: Diagnosis: Upper abdominal pain, unspecified Presentation: 12/26 14:10 Chief complaint: EMS states: "pt is from [facility] custody. pt is reporting upper jd3 abdominal pain and vomiting blood. pt denies any trauma to his stomach. reports eating breakfast this AM with no problems. he reported that he woke up from a nap and started throwing have bad upper abdominal pain then threw up green phlegm-like, bloody emesis.". Coronavirus screen: At this time, the client does not indicate any symptoms associated with coronavirus-19. Ebola Screen: No symptoms or risks identified at this time. Initial Sepsis Screen: Does the patient meet any 2 criteria? No. Patient's initial sepsis screen is negative. Does the patient have a suspected source of infection? No. Patient's initial sepsis screen is negative. Risk Assessment: Do you want to hurt yourself or someone else? Patient reports no desire to harm self or others. Onset of symptoms was December 26, 2021. 14:10 Method Of Arrival: EMS: [facility] jd3 14:10 Acuity: MARY ELLEN 3 jd3 Historical: - Allergies: 14:16 No Known Allergies; jd3 - Home Meds: 14:16 None [Active]; jd3 - PMHx: 14:16 None; jd3 - PSHx: 14:16 Appendectomy; jd3 - Immunization history:: Adult Immunizations up to date, Client reports having NOT received the Covid vaccine. - Social history:: Smoking status: Patient denies any tobacco usage or history of. Patient/guardian denies using alcohol, street drugs, The patient lives with family. - Family history:: not pertinent. Screenin:19 Abuse screen: Denies threats or abuse. Nutritional screening: No deficits noted. jd3 Tuberculosis screening: No symptoms or risk factors identified. Fall Risk Ambulatory Aid- None/Bed Rest/Nurse Assist (0 pts). Gait- Normal/Bed Rest/Wheelchair (0 pts) Mental Status- Oriented to own ability (0 pts). Total Villar Fall Scale indicates No Risk (0-24 pts). Assessment: 14:17 General: Appears in no apparent distress. comfortable, Behavior is calm, cooperative, jd3 appropriate for age. Pain: Complains of pain in epigastric area, right upper quadrant and left upper quadrant Quality of pain is described as dull, tender. Neuro: Hooks Agitation-Sedation Scale (RASS): 0 - Alert and Calm Level of Consciousness is awake, alert, obeys commands, Oriented to person, place, time, situation. Cardiovascular: Heart tones present Capillary refill < 3 seconds Patient's skin is warm and dry. Respiratory: Airway is patent Respiratory effort is even, unlabored, Respiratory pattern is regular, symmetrical, Denies cough, shortness of breath. GI: Abdomen is non-distended, Bowel sounds present X 4 quads. Abd is soft X 4 quads Abdomen is tender to palpation in right upper quadrant and left upper quadrant Reports upper abdominal pain, constipation, nausea, vomiting. : No signs and/or symptoms were reported regarding the genitourinary system. EENT: No signs and/or symptoms were reported regarding the EENT system. Derm: Skin is intact, Skin is dry, Skin is normal, Skin temperature is warm. Musculoskeletal: Circulation, motion, and sensation intact. Range of motion: intact in all extremities. 15:30 Reassessment: Patient appears in no apparent distress at this time. Patient and/or jd3 family updated on plan of care and expected duration. Pain level reassessed. Patient is alert, oriented x 3, equal unlabored respirations, skin warm/dry/pink. Patient states feeling better. 16:47 Reassessment: Patient appears in no apparent distress at this time. Patient and/or jd3 family updated on plan of care and expected duration. Pain level reassessed. Patient is alert, oriented x 3, equal unlabored respirations, skin warm/dry/pink. Vital Signs: 14:16 BP 138 / 87; Pulse 96; Resp 17 S; Temp 98.6(O); Pulse Ox 98% on R/A; Weight 83.91 kg jd3 (R); Height 5 ft. 3 in. (160.02 cm) (R); Pain 3/10; 16:49 BP 124 / 90; Pulse 89; Resp 16 S; Pulse Ox 99% on R/A; jd3 14:16 Body Mass Index 32.77 (83.91 kg, 160.02 cm) jd3 ED Course: 14:10 Patient arrived in ED. ld1 14:10 Benji Castano, RN is Primary Nurse. jd3 14:16 Triage completed. jd3 14:16 Gaudencio Reaves MD is Attending Physician. ma2 14:17 Arm band placed on. jd3 14:19 Patient has correct armband on for positive identification. Bed in low position. Call j light in reach. Side rails up X2. Adult w/ patient. [place] [employer] at bedside. Pulse ox on. NIBP on. 14:45 Inserted saline lock: 20 gauge in right forearm, using aseptic technique. Blood mb7 collected. 14:45 CBC with Diff Sent. mb7 14:45 CMP Sent. mb7 14:45 Lipase Sent. mb7 16:47 No provider procedures requiring assistance completed. IV discontinued, intact, jd3 bleeding controlled, No redness/swelling at site. Pressure dressing applied. Administered Medications: 15:02 Drug: Zofran (Ondansetron) 4 mg Route: IVP; Site: right forearm; jd3 16:00 Follow up: Response: No adverse reaction jd3 Medication: 14:19 VIS not applicable for this client. jd3 Outcome: 16:17 Discharge ordered by . la2 16:47 Discharged to Law Enforcement jd3 16:47 Condition: stable 16:47 Discharge instructions given to patient, police, Instructed on discharge instructions, follow up and referral plans. medication usage, Demonstrated understanding of instructions, follow-up care, medications, Prescriptions given X 2. 16:49 Patient left the ED. jd3 Signatures: Benji Castano, JIM RN jGaudencio Brown MD MD ma2 Dibbern, Lauren, RN RN Cassidy Stanton mb7
[2021-12-26 16:54] VITALS: BP 138/87; TEMP 98.6; O2SAT 98
== END 2021-12-26 16:49 | disposition home or self-care (01) ==
LOC: ER 14:03
DX: R10.10 Upper abdominal pain, unspecified (principal)
CPT/HCPCS: 36415; 80053; 83690; 85025; 96374; 99284; J2405